=== PATIENT | female | born 1955 | race Caucasian/White ===

== ENCOUNTER 2017-10-27 15:42 | Inpatient (IN) | payer OTHER ==
[~2017-10-27] VITALS: Ht 160 cm; Wt 80.0 kg
[2017-10-27 15:45] VITALS: BP 181/79; PULSE 102; RESP 19; O2SAT 95
[2017-10-27 15:49] VITALS: BP 136/90; PULSE 117; RESP 18; TEMP 97.9; O2SAT 96
[2017-10-27 16:00] VITALS: BP 144/79; PULSE 98; RESP 22; O2SAT 95
[2017-10-27] MEDS ORDERED: ONDANSETRON HCL 4 MG/2 ML VIAL IV PUSH ONE ×2 (16:15→18:15)
[2017-10-27] MEDS ORDERED: SODIUM CHLORIDE 0.9% FLUSH 10 ML FLUSH IV FLUSH PRN ×2 (16:15→20:15)
[2017-10-27 16:36] LABS: AUTOMATED NEUTROPHIL # 8.6 TH/MM3 (1.8-7.7); BASOPHIL # 0.1 TH/MM3 (0-0.2); BASOPHIL % 0.6 % (0.0-2.0); EOSINOPHIL % 0.1 % (0.0-4.0); HEMATOCRIT 46.5 % (35.0-46.0); HEMOGLOBIN 15.3 GM/DL (11.6-15.3); LYMPH % 6.8 % (9.0-44.0); LYMPHOCYTE # 0.7 TH/MM3 (1.0-4.8); MEAN CELL VOLUME 99.2 FL (80.0-100.0); MEAN CORPUSCULAR HEMOGLOBIN 32.6 PG (27.0-34.0); MEAN CORPUSCULAR HGB CONC 32.9 % (32.0-36.0); MONO % 4.1 % (0.0-8.0); MONOCYTE # 0.4 TH/MM3 (0-0.9); NEUT % 88.4 % (16.0-70.0); PLATELET COUNT 164 TH/MM3 (150-450); RED BLOOD COUNT 4.69 MIL/MM3 (4.00-5.30); RED CELL DISTRIBUTION WIDTH 16.1 % (11.6-17.2); WHITE BLOOD COUNT 9.8 TH/MM3 (4.0-11.0)
--- NOTE | 2017-10-27 16:37 | PD ---
HPI Chief Complaint: Altered Mental Status Time Seen by Provider: 16:04 Travel History International Travel<30 days: Yes Contact w/Intl Traveler<30days: [place] Country Traveled to: [place] Traveled to known affect area: No History of Present Illness HPI Patient is a 62-year-old female presenting to emergency department for evaluation of nausea and vomiting. This started in the middle of the night last night, patient states she's had dry heaving all morning and is afraid to eat or drink anything. She reports decreased appetite over the last several days and poor oral intake. Additionally she states that she was seen by her primary doctor yesterday and had blood work ordered as well as a CT of the brain due to increased forgetfulness and memory issues. States that they didn' t Mini-Mental Status exam in the office and patient didn't do well on it. Patient states that she has decreased motivation, has been sleeping more. She denies any fatigue but states she is not motivated because cognitively she is not functioning as she normally would. She reports losing periods of time. She does have a history of alcoholism, she was dry for 12 years, she relapsed 3 years ago for approximately 12 months and then was cleaned again. 3 months ago she had a weeklong episode of binge drinking but has not had any alcohol since then per her 's report. Patient denies any chest pain, shortness of breath, headache, dysuria, fever, chills. PFSH Past Medical History Medical History: Denies Significant Hx Past Surgical History Abdominal Surgery: Yes (BOWEL LOOP AND REMOVED OVARY) Appendectomy: Yes Social History Alcohol Use: Yes Tobacco Use: No Substance Use: No Allergies-Medications (Allergen,Severity, Reaction): Coded Allergies: Sulfa (Sulfonamide Antibiotics) (Verified Adverse Reaction, Intermediate, VOMITING, 10/27/17) Review of Systems Except as stated in HPI: all other systems reviewed are Neg General / Constitutional: No: Fever, Chills Eyes: No: Blurred Vision HENT: No: Headaches, Lightheadedness Cardiovascular: No: Chest Pain or Discomfort Respiratory: No: Shortness of Breath Gastrointestinal: Positive: Nausea, Vomiting, No: Abdominal Pain Genitourinary: No: Dysuria Neurologic: Positive: Change in Mentation Psychiatric: No: Anxiety, Depression Physical Exam Narrative GENERAL: Well-developed, well-nourished, alert female. Initially appeared anxious, in no acute distress. SKIN: Warm and dry. HEAD: Atraumatic. Normocephalic. EYES: Pupils equal and round. No scleral icterus. No injection or drainage. ENT: No nasal bleeding or discharge. Mucous membranes pink and moist. NECK: Trachea midline. No JVD. CARDIOVASCULAR: Tachycardic. RESPIRATORY: No accessory muscle use. Clear to auscultation. Breath sounds equal bilaterally. GASTROINTESTINAL: Abdomen soft, non-tender, nondistended. Hepatic and splenic margins not palpable. MUSCULOSKELETAL: Extremities without clubbing, cyanosis, or edema. No obvious deformities. NEUROLOGICAL: Awake and alert. No obvious cranial nerve deficits. Motor grossly within normal limits. Five out of 5 muscle strength in the arms and legs. Normal speech. PSYCHIATRIC: Appropriate mood and affect; insight and judgment normal. Data Data Last Documented VS Vital Signs Date Time Temp Pulse Resp B/P (MAP) Pulse Ox O2 Delivery O2 Flow Rate FiO2 10/27/17 18:00 94 28 134/77 (96) 97 Room Air 10/27/17 15:49 97.9 Orders Orders Ammonia (10/27/17 16:04) Complete Blood Count With Diff (10/27/17 16:04) Comprehensive Metabolic Panel (10/27/17 16:04) Creatine Kinase (Cpk) (10/27/17 16:04) Prothrombin Time / Inr (Pt) (10/27/17 16:04) Act Partial Throm Time (Ptt) (10/27/17 16:04) Troponin I (10/27/17 16:04) Thyroid Stimulating Hormone (10/27/17 16:04) Urinalysis - C+S If Indicated (10/27/17 16:04) Ct Brain W/O Iv Contrast(Rout) (10/27/17 16:04) Blood Glucose (10/27/17 16:04) Ecg Monitoring (10/27/17 16:04) Iv Access Insert/Monitor (10/27/17 16:04) Oximetry (10/27/17 16:04) Sodium Chloride 0.9% Flush (Ns Flush) (10/27/17 16:15) Drug Screen, Random Urine (10/27/17 16:04) Ondansetron Inj (Zofran Inj) (10/27/17 16:15) Rapid Plasmin Reagin Screen (10/27/17 16:04) Beta Hydroxybutyrate (Acetone) (10/27/17 17:20) Sodium Chlor 0.9% 1000 Ml Inj (Ns 1000 M (10/27/17 18:00) Sodium Chlor 0.9% 1000 Ml Inj (Ns 1000 M (10/27/17 18:00) Lactic Acid (10/27/17 17:55) Urine Culture (10/27/17 16:50) Ondansetron Inj (Zofran Inj) (10/27/17 18:15) Lorazepam Inj (Ativan Inj) (10/27/17 18:30) Lorazepam Inj (Ativan Inj) (10/27/17 18:30) Ceftriaxone Inj (Rocephin Inj) (10/27/17 18:30) Admit Order (Ed Use Only) (10/27/17 18:37) Labs Laboratory Tests Test 10/27/17 16:13 10/27/17 16:19 10/27/17 16:50 10/27/17 17:15 White Blood Count 9.8 TH/MM3 Red Blood Count 4.69 MIL/MM3 Hemoglobin 15.3 GM/DL Hematocrit 46.5 % Mean Corpuscular Volume 99.2 FL Mean Corpuscular Hemoglobin 32.6 PG Mean Corpuscular Hemoglobin Concent 32.9 % Red Cell Distribution Width 16.1 % Platelet Count 164 TH/MM3 Mean Platelet Volume 7.0 FL Neutrophils (%) (Auto) 88.4 % Lymphocytes (%) (Auto) 6.8 % Monocytes (%) (Auto) 4.1 % Eosinophils (%) (Auto) 0.1 % Basophils (%) (Auto) 0.6 % Neutrophils # (Auto) 8.6 TH/MM3 Lymphocytes # (Auto) 0.7 TH/MM3 Monocytes # (Auto) 0.4 TH/MM3 Eosinophils # (Auto) 0.0 TH/MM3 Basophils # (Auto) 0.1 TH/MM3 CBC Comment DIFF FINAL Differential Comment Prothrombin Time 10.0 SEC Prothromb Time International Ratio 1.0 RATIO Activated Partial Thromboplast Time 24.0 SEC Blood Urea Nitrogen 19 MG/DL Creatinine 0.99 MG/DL Random Glucose 93 MG/DL Total Protein 8.9 GM/DL Albumin 4.6 GM/DL Calcium Level 9.6 MG/DL Alkaline Phosphatase 63 U/L Aspartate Amino Transf (AST/SGOT) 97 U/L Alanine Aminotransferase (ALT/SGPT) 63 U/L Total Bilirubin 1.2 MG/DL Sodium Level 134 MEQ/L Potassium Level 4.5 MEQ/L Chloride Level 94 MEQ/L Carbon Dioxide Level 11.8 MEQ/L Anion Gap 28 MEQ/L Estimat Glomerular Filtration Rate 57 ML/MIN Total Creatine Kinase 94 U/L Troponin I LESS THAN 0.02 NG/ML Thyroid Stimulating Hormone 3rd Gen 1.220 uIU/ML B-Hydroxybutyrate 9.60 MMOL/L Ammonia 23 MCMOL/L Urine Color YELLOW Urine Turbidity HAZY Urine pH 5.5 Urine Specific [place] 1.021 Urine Protein 30 mg/dL Urine Glucose (UA) NEG mg/dL Urine Ketones 150 mg/dL Urine Occult Blood TRACE Urine Nitrite NEG Urine Bilirubin NEG Urine Urobilinogen LESS THAN 2.0 MG/DL Urine Leukocyte Esterase MOD Urine RBC 3 /hpf Urine WBC 8 /hpf Urine Squamous Epithelial Cells 5 /hpf Urine Bacteria FEW /hpf Urine Hyaline Casts 46 /lpf Urine Mucus FEW /lpf Microscopic Urinalysis Comment CATH-CULTURE IND Urine Opiates Screen NEG Urine Barbiturates Screen NEG Urine Amphetamines Screen NEG Urine Benzodiazepines Screen NEG Urine Cocaine Screen NEG Urine Cannabinoids Screen NEG MDM Medical Decision Making Medical Screen Exam Complete: Yes Emergency Medical Condition: Yes Interpretation(s) Vital Signs Date Time Temp Pulse Resp B/P (MAP) Pulse Ox O2 Delivery O2 Flow Rate FiO2 10/27/17 15:49 97.9 117 18 136/90 (105) 96 Differential Diagnosis Metabolic abnormality versus dementia versus viral syndrome versus encephalopathy versus mass versus other Narrative Course Patient is a 62-year-old female that presented to the emergency department for evaluation of altered mental status. On arrival patient was tachycardic, tachypneic and tremulous. Labs and imaging ordered and pending. is at bedside and corroborates patient's claim that she has not had any alcohol in 2 and half months. CBC is unremarkable Ammonia is 23, TSH is 1.22 Chemistry with an anion gap of 28, BUN 19, carbon dioxide 11.8, AST and ALT 97/ 63, bilirubin 1.2. Pt was given 2l IVF. Urine drug screen is negative Beta hydroxybutyrate is 9.6 Urinalysis is consistent with a urinary tract infection, Rocephin 1 g IV 1 dose ordered. Reflex urine culture pending CT scan of the brain shows slight atrophic and small vessel ischemic changes without any evidence of acute hemorrhage or mass effect. Patient is acidotic, she continues to deny any alcohol intake. She was given Ativan 2 mg IV and she became tachycardic and tremulous again when she was reassessed at 1830. Discussed findings with residents who accepted admission on behalf of Dr. Lindsey. Admit orders placed. Discussed findings with patient. Past findings with as well, he states that he did find an empty bottle of tequila last week. He continues to believe that patient is not drinking regularly. Sepsis Criteria SIRS Criteria (2 or more): Heart rate over 90, RR > 20 or PaCO2 < 32 Diagnosis Primary Impression: Ketoacidosis Additional Impressions: SIRS (systemic inflammatory response syndrome) UTI (urinary tract infection) Qualified Codes: N39.0 - Urinary tract infection, site not specified Memory changes Admitting Information Admitting Physician Requests: Admit Condition: Stable Lizzie Spain Oct 27, 2017 16:37
--- NOTE | 2017-10-27 16:52 | RADRPT ---
EXAM DATE/TIME: 10/27/2017 16:13 [facility] COMPARISON: No previous studies available for comparison. INDICATIONS : Altered mental status. New onset tremors. RADIATION DOSE: 56.35 CTDIvol (mGy) MEDICAL HISTORY : None SURGICAL HISTORY : None. ENCOUNTER: Initial ACUITY: 2 months PAIN SCALE: 0/10 LOCATION: cranial TECHNIQUE: Multiple contiguous axial images were obtained of the head. Using automated exposure control and adj ustment of the mA and/or kV according to patient size, radiation dose was kept as low as reasonably a chievable to obtain optimal diagnostic quality images. DICOM format image data is available electro nically for review and comparison. FINDINGS: There is no evidence for intracranial hemorrhage, mass effect, mass lesions, or edema. The visualize d bony structures appear intact. Slight degree of brain atrophy is seen. Slight periventricular whit e matter changes are seen nonspecific mostly consistent with chronic small vessel ischemic changes. There are no signs of acute infarction for technique. CONCLUSION: Slight atrophic and small vessel ischemic changes without any evidence for acute hemorrhage or mass effect. Nicole Kinney MD on October 27, 2017 at 16:49 Board Certified Radiologist. This report was verified electronically.
[2017-10-27 17:04] LABS: ALBUMIN 4.6 GM/DL (3.4-5.0); AST (GOT) 97 U/L (15-37); BICARBONATE 11.8 MEQ/L (21.0-32.0); BLOOD UREA NITROGEN 19 MG/DL (7-18); CALCIUM 9.6 MG/DL (8.5-10.1); CHLORIDE 94 MEQ/L (98-107); CREATININE 0.99 MG/DL (0.50-1.00); GLOMERULAR FILTRATION RATE 57 ML/MIN (>89); GLUCOSE,RANDOM 93 MG/DL (74-106); SODIUM (NA) 134 MEQ/L (136-145)
[2017-10-27 17:15] LABS: ALKALINE PHOSPHATASE 63 U/L (45-117); ALT (GPT) 63 U/L (10-53); TOTAL BILIRUBIN ADULT 1.2 MG/DL (0.2-1.0); TOTAL PROTEIN 8.9 GM/DL (6.4-8.2); TROPONIN I LESS THAN 0.02 NG/ML (0.02-0.05)
[2017-10-27 18:00] VITALS: BP 134/77; PULSE 94; RESP 28; O2SAT 97
[2017-10-27] MEDS ORDERED: SODIUM CHLOR 0.9% 1000 ML INJ 1,000 ML IV ONE ×2 (18:00)
[2017-10-27 18:05] LABS: BACTERIA, URINE FEW /hpf; BILIRUBIN, URINE NEG (NEG); BLOOD, URINE TRACE (NEG); GLUCOSE,URINE NEG (NEG); HYALINE CAST, URINE 46 /lpf (RARE); KETONE, URINE 150 mg/dL (NEG); MUCUS URINE FEW /lpf (OCC); NITRITE,URINE NEG (NEG); PH, URINE 5.5 (5.0-8.5); SQUAMOUS EPITHELIAL CELL URINE 5 /hpf (0-5); URINE COLOR YELLOW (YELLW/STRAW); URINE LEUKOCYTE ESTERASE MOD (NEG)
[2017-10-27] MEDS ORDERED: cefTRIAXone INJ 1,000 MG in SODIUM CHLORIDE 0.9% INJ 100 ML IV ONE (18:30)
[2017-10-27] MEDS ORDERED: LORazepam 2 MG/ML VIAL IV PUSH ONE ×2 (18:30)
[2017-10-27 19:00] VITALS: BP 141/72; PULSE 98; RESP 20; O2SAT 96
[2017-10-27 19:36] LABS: MAGNESIUM 2.1 MG/DL (1.5-2.5); PHOSPHORUS 2.8 MG/DL (2.5-4.9)
--- NOTE | 2017-10-27 19:46 | HHI.HP ---
[facility] Service Family Medicine Primary Care Physician Unknown Admission Diagnosis KETOACIDOSIS Diagnoses: International Travel<30 Days: Yes Contact w/Intl Traveler<30days: [place] Country Traveled to: [facility] Known Affected Area: No History of Present Illness Patient is a 62-year-old female with a past history of alcoholism coming in today for nausea and vomiting. She states of her concerns began approximate 4 months ago when she states she felt her "mind going." This was described as being forgetful, having a flat affect, being less involved with friends. She states around Thanksgiving she got a cold and around that same time she started "shutting down" where she had more flat affect, began sleeping a lot, couldn't figure out how to get out of chairs and had a decreasing appetite. She states it is hard to know how to place her feet do feel appropriately balanced when getting out of chairs. She also started to know a shuffling gait. She believes that she recently has started caring less about hygiene, brushes her teeth less , showers less. 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 Approximately 5 days ago she stopped eating altogether. She recently got a new doctor because her old doctor retired and saw her new doctor a day or 2 ago who prescribed her "B1 and folate." Today she believes she is eating sicker, she only been drinking water for 5 days, finally today when she drank water she began throwing up. She believes she vomited approximately 7 times, vomited water then bile. No blood noted. She is also concerned she felt her heart rate was elevated and her blood pressure is elevated. She reports her heart rate is normally in the 60s and her blood pressures typically in the 90s to 100s. She also reports she had tremors today. She has recent travel to the [facility] and [place], she did not note anything specific about the trips. Currently she believes she is slightly unbalanced, has slower speech. No facial droop, weakness, numbness, tingling. When asked about hallucinations she states that there may been one situation the other night where she waves her hands through the air and proclaimed "they're all gone." She states that although she doesn't quite remember this, her reported this to her. Currently she believes she has decreased interest in things she used to enjoy, no new guilt about anything, decreased energy, decreased concentration, decreased appetite, psychomotor retardation, no suicidal or homicidal ideation. Denies fever, chills, dysuria, shortness of breath, productive cough, chest pain. (Alfredo Boswell MD R1) Review of Systems Constitutional: COMPLAINS OF: Fatigue, Weight gain (55 pounds over last year), Weight loss (lost 21 pounds, intentional), Chills, Change in appetite (Decreased ), DENIES: Diaphoretic episodes, Fever, Dizziness Endocrine: COMPLAINS OF: Polydipsia, Polyuria, DENIES: Polyphagia Eyes: DENIES: Blurred vision, Diplopia, Eye inflammation, Eye pain, Vision loss , Photosensitivity, Double Vision Ears, nose, mouth, throat: DENIES: Tinnitus, Hearing loss, Vertigo, Nasal discharge, Throat pain, Hoarseness, Ear Pain, Running Nose, Epistaxis, Sinus Pain Respiratory: COMPLAINS OF: Cough, DENIES: Snoring, Wheezing, Hemoptysis, Sputum production, Shortness of breath Cardiovascular: DENIES: Chest pain, Palpitations, Syncope, Lower Extremity Edema Gastrointestinal: COMPLAINS OF: Abdominal pain (thinks pulled muscle), Constipation (maybe 6 days ago last BM), Nausea, Vomiting, DENIES: Black stools , Bloody stools, Diarrhea Genitourinary: COMPLAINS OF: Urinary frequency, DENIES: Abnormal vaginal bleeding, Hematuria, Dysuria, Vaginal discharge Musculoskeletal: COMPLAINS OF: Joint pain (Chronic hip), Neck pain (Cervical stenosis), DENIES: Muscle aches, Stiffness Integumentary: COMPLAINS OF: Rash (dry white spots on arms), DENIES: Abnormal pigmentation Hematologic/lymphatic: DENIES: Bruising, Lymphadenopathy Immunologic/allergic: DENIES: Eczema, Urticaria Neurologic: COMPLAINS OF: Abnormal gait (Shuffling), Speech Problems (Speaking slowly), Tremor, Poor Balance, DENIES: Headache, Localized weakness, Paresthesias, Seizures Psychiatric: DENIES: Anxiety, Depression, Hallucinations, Suicidal Ideation, Homicidal Ideation, Delusions (Alfredo Boswell MD R1) Past Family Social History Past Medical History none Past Surgical History Oophrectomy 2010 Appendectomy 2010 (Alfredo Boswell MD R1) Allergies: Coded Allergies: Sulfa (Sulfonamide Antibiotics) (Verified Adverse Reaction, Intermediate, VOMITING, 10/27/17) Family History Sister: Thyroid issues Twin brother: "bad back and knees" no other chronic problems Mother: Breast cancer, at 63 Father: at 89, prostate Cancer Social History EtOH: Former alcoholic drank half pint - pint /day until age 40, sober until last year, drank for a year half to 1 pint/per vodka or wine or tequila. Stopped drinking 2 and half months ago. Tobacco: 1 pack per day for 24 years Drugs: none (Alfredo Boswell MD R1) Physical Exam Vital Signs Vital Signs Date Time Temp Pulse Resp B/P (MAP) Pulse Ox O2 Delivery O2 Flow Rate FiO2 10/27/17 19:00 98 20 141/72 (95) 96 Room Air 10/27/17 18:00 94 28 134/77 (96) 97 Room Air 10/27/17 16:00 98 22 144/79 (100) 95 Room Air 10/27/17 15:49 97.9 117 18 136/90 (105) 96 10/27/17 15:45 102 19 181/79 (113) 95 Room Air Physical Exam GENERAL: This is a well-nourished, well-developed patient, in no apparent distress. SKIN: No ecchymoses. Several small hypopigmented dry lesions on arms. Non- scaling. Cool and dry. HEAD: Atraumatic. Normocephalic. No temporal or scalp tenderness. EYES: PERRLA. Extraocular motions intact. No scleral icterus. No injection or drainage. ENT: Nose without bleeding, purulent drainage or septal hematoma. Throat without erythema, tonsillar hypertrophy or exudate. Uvula midline. Airway patent. NECK: Trachea midline. No JVD or lymphadenopathy. Supple, nontender, no meningeal signs. CARDIOVASCULAR: Regular rate and rhythm without murmurs, gallops, or rubs. RESPIRATORY: Clear to auscultation. Breath sounds equal bilaterally. No wheezes , rales, or rhonchi. GASTROINTESTINAL: Abdomen soft, non-tender, nondistended. No hepato-splenomegaly , or palpable masses. No guarding. MUSCULOSKELETAL: Extremities without clubbing, cyanosis, or edema. No joint tenderness, effusion, or edema noted. No calf tenderness. NEUROLOGICAL: Awake and alert. Cranial nerves II through XII intact. Motor and sensory grossly within normal limits. Five out of 5 muscle strength in all muscle groups. Slow speech. Poor balance when attempting to stand, continuing standing. Near immediate loss of balance when standing with eyes closed. Unable to assess gait due to safety. Slow rapid alternating movements. Finger to nose with intention tremor, no dysmetria observed. Laboratory Laboratory Tests Test 10/27/17 16:13 10/27/17 16:19 10/27/17 16:50 10/27/17 17:15 White Blood Count 9.8 Red Blood Count 4.69 Hemoglobin 15.3 Hematocrit 46.5 Mean Corpuscular Volume 99.2 Mean Corpuscular Hemoglobin 32.6 Mean Corpuscular Hemoglobin Concent 32.9 Red Cell Distribution Width 16.1 Platelet Count 164 Mean Platelet Volume 7.0 Neutrophils (%) (Auto) 88.4 Lymphocytes (%) (Auto) 6.8 Monocytes (%) (Auto) 4.1 Eosinophils (%) (Auto) 0.1 Basophils (%) (Auto) 0.6 Neutrophils # (Auto) 8.6 Lymphocytes # (Auto) 0.7 Monocytes # (Auto) 0.4 Eosinophils # (Auto) 0.0 Basophils # (Auto) 0.1 CBC Comment DIFF FINAL Differential Comment Prothrombin Time 10.0 Prothromb Time International Ratio 1.0 Activated Partial Thromboplast Time 24.0 Blood Urea Nitrogen 19 Creatinine 0.99 Random Glucose 93 Total Protein 8.9 Albumin 4.6 Calcium Level 9.6 Alkaline Phosphatase 63 Aspartate Amino Transf (AST/SGOT) 97 Alanine Aminotransferase (ALT/SGPT) 63 Total Bilirubin 1.2 Sodium Level 134 Potassium Level 4.5 Chloride Level 94 Carbon Dioxide Level 11.8 Anion Gap 28 Estimat Glomerular Filtration Rate 57 Total Creatine Kinase 94 Troponin I LESS THAN 0.02 Thyroid Stimulating Hormone 3rd Gen 1.220 B-Hydroxybutyrate 9.60 Ammonia 23 Urine Color YELLOW Urine Turbidity HAZY Urine pH 5.5 Urine Specific [place] 1.021 Urine Protein 30 Urine Glucose (UA) NEG Urine Ketones 150 Urine Occult Blood TRACE Urine Nitrite NEG Urine Bilirubin NEG Urine Urobilinogen LESS THAN 2.0 Urine Leukocyte Esterase MOD Urine RBC 3 Urine WBC 8 Urine Squamous Epithelial Cells 5 Urine Bacteria FEW Urine Hyaline Casts 46 Urine Mucus FEW Microscopic Urinalysis Comment CATH-CULTURE IND Urine Opiates Screen NEG Urine Barbiturates Screen NEG Urine Amphetamines Screen NEG Urine Benzodiazepines Screen NEG Urine Cocaine Screen NEG Urine Cannabinoids Screen NEG Test 10/27/17 18:40 Date/Time Source Procedure Growth Status 10/27/17 16:50 Urine Catheterized Urine Urine Culture Pending Received (Alfredo Boswell MD R1) Result Diagram: 10/27/17 1613 10/27/17 1613 Imaging Last [address] 10/27/17 1604 Signed Impressions: Service Date/Time: Friday, October 27, 2017 16:13 - CONCLUSION: Slight atrophic and small vessel ischemic changes without any evidence for acute hemorrhage or mass effect. Nicole Kinney MD (Alfredo Boswell MD R1) Caprini VTE Risk Assessment Caprini VTE Risk Assessment: Mod/High Risk (score >= 2) Caprini Risk Assessment Model Point Value = 1 Point Value = 2 Point Value = 3 Point Value = 5 Age 41-60 Minor surgery BMI > 25 kg/m2 Swollen legs Varicose veins or History of unexplained or recurrent spontaneous Oral contraceptives or hormone replacement Sepsis (< 1 month) Serious lung disease, including pneumonia (< 1 month) Abnormal pulmonary function Acute myocardial infarction Congestive heart failure (< 1 month) History of inflammatory bowel disease Medical patient at bed rest Age 61-74 Arthroscopic surgery Major open surgery (> 45 min) Laparoscopic surgery (> 45 min) Malignancy Confined to bed (> 72 hours) Immobilizing plaster cast Central venous access Age >= 75 History of VTE Family history of VTE Factor V Leiden Prothrombin [id number] Lupus anticoagulant Anticardiolipin antibodies Elevated serum homocysteine Heparin-induced thrombocytopenia Other congenital or acquired thrombophilia Stroke (< 1 month) Elective arthroplasty Hip, pelvis, or leg fracture Acute spinal cord injury (< 1 month) Prophylaxis Regimen Total Risk Factor Score Risk Level Prophylaxis Regimen 0-1 Low Early ambulation 2 Moderate Order ONE of the following: *Sequential Compression Device (SCD) *Heparin 5000 units SQ BID 3-4 Higher Order ONE of the following medications: *Heparin 5000 units SQ TID *Enoxaparin/Lovenox 40 mg SQ daily (WT < 150 kg, CrCl > 30 mL/min) *Enoxaparin/Lovenox 30 mg SQ daily (WT < 150 kg, CrCl > 10-29 mL/min) *Enoxaparin/Lovenox 30 mg SQ BID (WT < 150 kg, CrCl > 30 mL/min) AND/OR *Sequential Compression Device (SCD) 5 or more Highest Order ONE of the following medications: *Heparin 5000 units SQ TID (Preferred with Epidurals) *Enoxaparin/Lovenox 40 mg SQ daily (WT < 150 kg, CrCl > 30 mL/min) *Enoxaparin/Lovenox 30 mg SQ daily (WT < 150 kg, CrCl > 10-29 mL/min) *Enoxaparin/Lovenox 30 mg SQ BID (WT < 150 kg, CrCl > 30 mL/min) AND *Sequential Compression Device (SCD) (Alfredo Boswell MD R1) Assessment and Plan Assessment and Plan 62-year-old female who presented with nausea and vomiting. Increased confusion over the past 4 months, parkinsonian-like features. Metabolic derangements on admission. Anion gap 28. UA positive for UTI. (Alfredo Boswell MD R1) Problem List: (1) Ketoacidosis ICD Codes: E87.2 - Acidosis Status: Acute Plan: Ketoacidosis. Urine ketones 150. Beta hydroxybutyrate 9.6. Random glucose 93. No history of diabetes. Reports anorexia for 5 days with nausea and vomiting on day of admission. Possible ketoacidosis secondary to starvation. -Control nausea and vomiting with antiemetic, Zofran -Swallow evaluation prior to diet due to recent changes in mental status, see memory changes below -Maintenance fluids -Follow up magnesium and phosphorus (2) UTI (urinary tract infection) ICD Codes: N39.0 - Urinary tract infection, site not specified Status: Acute Plan: Currently does not complain of dysuria. Reports a darkening of her urine today. On the UA on admission moderate LE, 8 WBC, few urine bacteria. Currently afebrile, mild tachycardia 95, RR 16 -Rocephin 1000 mg every 24 hours -Monitor for signs of systemic infection (3) Memory changes ICD Codes: R41.3 - Other amnesia Status: Acute Plan: Reports 4 months of worsening forgetfulness, flat affect, decreased interest and others, shuffling gait. Increasingly decreased appetite, anorexic for the past 5 days. Reports new onset tremors today. Possibly dementia (Lewy body versus vascular). Past history of alcoholism, ethyl alcohol less than 3 today. -CT head without acute hemorrhage or mass effect -Follow up brain MRI -Follow-up neurology consult -Nothing by mouth until cleared by swallow evaluation -Speak with about patient's functional status (4) FEN Plan: Fluids: -Maintenance fluids 120 mL/h Electrolytes: -Monitor and replete as needed Nutrition: -Nothing by mouth until swallow study (Alfredo Boswell MD R1) Problem List: (1) Ketoacidosis ICD Codes: E87.2 - Acidosis Status: Acute Plan: Ketoacidosis. Urine ketones 150. Beta hydroxybutyrate 9.6. Random glucose 93. No history of diabetes. Reports anorexia for 5 days with nausea and vomiting on day of admission. Possible ketoacidosis secondary to starvation. -Control nausea and vomiting with antiemetic, Zofran -Swallow evaluation prior to diet due to recent changes in mental status, see memory changes below -Maintenance fluids -Follow up magnesium and phosphorus (2) UTI (urinary tract infection) ICD Codes: N39.0 - Urinary tract infection, site not specified Status: Acute Plan: Currently does not complain of dysuria. Reports a darkening of her urine today. On the UA on admission moderate LE, 8 WBC, few urine bacteria. Currently afebrile, mild tachycardia 95, RR 16 -Rocephin 1000 mg every 24 hours -Monitor for signs of systemic infection (3) Memory changes ICD Codes: R41.3 - Other amnesia Status: Acute Plan: Reports 4 months of worsening forgetfulness, flat affect, decreased interest and others, shuffling gait. Increasingly decreased appetite, anorexic for the past 5 days. Reports new onset tremors today. Possibly dementia (Lewy body versus vascular). Past history of alcoholism, ethyl alcohol less than 3 today. -CT head without acute hemorrhage or mass effect -Follow up brain MRI -Follow-up neurology consult -Nothing by mouth until cleared by swallow evaluation -Speak with about patient's functional status (4) FEN Plan: Fluids: -Maintenance fluids 120 mL/h Electrolytes: -Monitor and replete as needed Nutrition: -Nothing by mouth until swallow study See the residents documentation for details. I saw and evaluated the patient regarding the hdz portions of this evaluation and agree with the residents findings and plans as written. I have reviewed the patients past medical/surgical and social histories and updated as appropriate. Parts of this note were created using [employer] voice recognition software program. While efforts were made to correct any mistakes made by this software, some mistakes, errors, and omissions may remain in the final note that were not caught when the note was originally created. Plan of care was discussed and agreed upon with the patient as specifically documented in the above note. An opportunity to ask questions with explanation was provided. Patient voiced understanding on all information reviewed and discussed. (Gabino Brennan MD) Physician Certification 2 Midnight Certification Type: Admission for Inpatient Services Order for Inpatient Services The services are ordered in accordance with Medicare regulations or non- Medicare payer requirements, as applicable. In the case of services not specified as inpatient-only, they are appropriately provided as inpatient services in accordance with the 2-midnight benchmark. Estimated LOS (days): 2 2 days is the estimated time the patient will need to remain in the hospital, assuming treatment plan goals are met and no additional complications. Post-Hospital Plan: Home (Alfredo Boswell MD R1) Problem Qualifiers (1) UTI (urinary tract infection): Qualified Codes: N39.0 - Urinary tract infection, site not specified Alfredo Boswell MD R1 Oct 27, 2017 19:46 Gabino Brennan MD Oct 28, 2017 13:09
[2017-10-27] MEDS ORDERED: FLUMAZENIL 0.5 MG/5 ML VIAL IV PUSH PRN (20:15)
[2017-10-27] MEDS ORDERED: MAGNESIUM HYDROXIDE SUSP 30 ML CUP PO PRN (20:15)
[2017-10-27] MEDS ORDERED: LACTULOSE SYRUP 20 GM/30 ML CUP PO PRN (20:15)
[2017-10-27] MEDS ORDERED: LORazepam 2 MG/ML VIAL IV PUSH PRN ×4 (20:15)
[2017-10-27] MEDS ORDERED: NALOXONE HCL 0.4 MG/ML AMP IV PUSH PRN (20:15)
[2017-10-27] MEDS ORDERED: SENNOSIDES 8.6 MG TAB PO PRN (20:15)
[2017-10-27] MEDS ORDERED: ACETAMINOPHEN 325 MG TAB PO PRN (20:15)
[2017-10-27] MEDS ORDERED: BISACODYL 10 MG SUPP RECTAL PRN (20:15)
[2017-10-27 21:11] VITALS: BP 131/78; PULSE 95; RESP 16; TEMP 98.1; O2SAT 95
[2017-10-27] MEDS: ONDANSETRON HCL 4 MG/2 ML VIAL IVP PRN (21:46)
[2017-10-27] MEDS: HEPARIN SODIUM - SQ 10,000 UNITS/ML VIAL SQ SCH (21:46)
[2017-10-27] MEDS: DOCUSATE SODIUM 50 MG/SENNA 8.6 MG TAB PO SCH (21:49)
[2017-10-27] MEDS: SODIUM CHLORIDE 0.9% FLUSH 10 ML FLUSH IV FLUSH SCH (21:50)
[2017-10-27] MEDS: LORazepam 2 MG TAB PO PRN (21:52)
[2017-10-28] VITALS (7 sets, daily range): BP systolic 116–139; BP diastolic 66–83; PULSE 83–100; RESP 17–20; TEMP 96.6–98.9; O2SAT 92–97
[2017-10-28] MEDS: SODIUM CHLOR 0.9% 1000 ML INJ 1,000 ML IV SCH ×3 (00:59→22:05)
[2017-10-28] MEDS: LORazepam 2 MG TAB PO PRN (01:42)
[2017-10-28] MEDS: HEPARIN SODIUM - SQ 10,000 UNITS/ML VIAL SQ SCH ×3 (06:00→22:09)
[2017-10-28 08:20] LABS: AUTOMATED NEUTROPHIL # 6.6 TH/MM3 (1.8-7.7); BASOPHIL % 0.3 % (0.0-2.0); EOSINOPHIL % 0.3 % (0.0-4.0); HEMATOCRIT 35.5 % (35.0-46.0); HEMOGLOBIN 12.1 GM/DL (11.6-15.3); LYMPH % 9.6 % (9.0-44.0); LYMPHOCYTE # 0.8 TH/MM3 (1.0-4.8); MEAN CORPUSCULAR HEMOGLOBIN 33.5 PG (27.0-34.0); MEAN CORPUSCULAR HGB CONC 34.2 % (32.0-36.0); MEAN PLATELET VOLUME 7.4 FL (7.0-11.0); MONO % 6.6 % (0.0-8.0); MONOCYTE # 0.5 TH/MM3 (0-0.9); NEUT % 83.2 % (16.0-70.0); PLATELET COUNT 110 TH/MM3 (150-450); RED BLOOD COUNT 3.62 MIL/MM3 (4.00-5.30); RED CELL DISTRIBUTION WIDTH 16.1 % (11.6-17.2); WHITE BLOOD COUNT 7.9 TH/MM3 (4.0-11.0)
[2017-10-28] MEDS: DOCUSATE SODIUM 50 MG/SENNA 8.6 MG TAB PO SCH ×2 (08:37→21:00)
[2017-10-28] MEDS: SODIUM CHLORIDE 0.9% FLUSH 10 ML FLUSH IV FLUSH SCH ×2 (08:38→21:00)
[2017-10-28] MEDS: ONDANSETRON HCL 4 MG/2 ML VIAL IVP PRN ×2 (08:39→17:30)
[2017-10-28 08:48] LABS: ALBUMIN 3.3 GM/DL (3.4-5.0); ALKALINE PHOSPHATASE 46 U/L (45-117); ALT (GPT) 43 U/L (10-53); AST (GOT) 60 U/L (15-37); BICARBONATE 19.7 MEQ/L (21.0-32.0); BLOOD UREA NITROGEN 19 MG/DL (7-18); CALCIUM 7.7 MG/DL (8.5-10.1); CHLORIDE 104 MEQ/L (98-107); CREATININE 0.79 MG/DL (0.50-1.00); GLOMERULAR FILTRATION RATE 74 ML/MIN (>89); GLUCOSE,RANDOM 77 MG/DL (74-106); SODIUM (NA) 139 MEQ/L (136-145); TOTAL BILIRUBIN ADULT 1.1 MG/DL (0.2-1.0); TOTAL PROTEIN 6.4 GM/DL (6.4-8.2)
[2017-10-28] MEDS: LORazepam 1 MG TAB PO PRN ×4 (08:50→22:17)
[2017-10-28] MEDS ORDERED: THIAMINE HCL 100 MG TAB PO SCH (09:00)
[2017-10-28] MEDS: MULTIVITAMIN TAB PO SCH (09:34)
[2017-10-28] MEDS: FOLIC ACID 1 MG TAB PO SCH (09:34)
--- NOTE | 2017-10-28 11:02 | RADRPT ---
EXAM DATE/TIME: 10/28/2017 09:52 [facility] COMPARISON: CT BRAIN W/O CONTRAST, October 27, 2017, 16:13. INDICATIONS : Unsteady gait. MEDICAL HISTORY : None. SURGICAL HISTORY : None. ENCOUNTER: Initial ACUITY: 1 day PAIN SCORE: 0/10 LOCATION: cranial TECHNIQUE: Multiplanar, multisequence MRI of the brain was performed without contrast. FINDINGS: CEREBRUM: The ventricles are normal for age. The cortical sulci are mildly widened. No evidence of midline amrilyn ft, mass lesion, hemorrhage or acute infarction. No extraaxial fluid collections are seen. The pitu itary gland and suprasellar cistern are normal in configuration. WHITE MATTER: There is focal mild increased signal within the anterior medial left kiesha on the flair images. POSTERIOR FOSSA: The cerebellum and brainstem are intact. The 4th ventricle is midline. The cerebellopontine angle is unremarkable. The cerebellar tonsils are normal in position. DIFFUSION IMAGING: No focal areas of restricted diffusion are seen. No evidence of acute infarction. EXTRACRANIAL: The visualized portions of the orbits and paranasal sinuses are unremarkable. CONCLUSION: 1. Mild focal increased signal within the pontine white matter on the flair images. This could be a s mall area of demyelination. Osmotic demyelination syndrome causes signal abnormality in this region but typically is much more diffuse. 2. Mild atrophy with widening of the cortical sulci. Jese Alvarez MD on October 28, 2017 at 10:52 Board Certified Radiologist. This report was verified electronically.
[2017-10-28] MEDS ORDERED: LOPERAMIDE HCL 2 MG CAP PO PRN (11:30)
--- NOTE | 2017-10-28 11:54 | RADRPT ---
EXAM DATE/TIME: 10/28/2017 11:41 [facility] COMPARISON: No previous studies available for comparison. INDICATIONS : Shortness of breath and vomitting. MEDICAL HISTORY : None. SURGICAL HISTORY : None. ENCOUNTER: Initial ACUITY: 2 days PAIN SCORE: 0/10 LOCATION: Bilateral chest FINDINGS: The heart size is normal. There is linear density seen at the right base likely related to atelectasi s. Left lung is clear. No effusion is seen. CONCLUSION: Suspected linear atelectasis at the right base. Jese Alvarez MD on October 28, 2017 at 11:50 Board Certified Radiologist. This report was verified electronically.
[2017-10-28] MEDS: THIAMINE INJ 250 MG in SODIUM CHLORIDE 0.9% INJ 100 ML IV SCH ×2 (12:34→17:05)
--- NOTE | 2017-10-28 12:46 | MB ---
cc: HU ORDONEZ M.D. DATE OF CONSULTATION: 10/28/2017 REASON FOR CONSULTATION: Possible onset dementia tremors. HISTORY OF PRESENT ILLNESS: This 62-year-old woman with a history of alcoholism came with some nausea and vomiting and was having issues with confusion. She states she has a flat affect, did not want to shower or brush her teeth, sleeping more, did not want to leave her house. She has been having some decreased appetite. Decided to . 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 She states yesterday when she was dry heaving she had tremors but was not losing awareness. They recently travelled to the [facility] for the holidays and then to [place] and she states that she was taking it easy. She is worried about dementia. She stated that she does not think she has hallucinations but she heard last night people talking about some curing room supervisor with some dogs around, not sure if that really occurred. ALLERGIES: SULFA. FAMILY HISTORY: Family history of thyroid disease, back issues, breast cancer in the mother, prostate cancer in the father. SOCIAL HISTORY: She used to drink a half a pint to a pint daily until the age of 40 and then became sober last year and has not had a drink for a year and a half, a pint of vodka, stopped drinking 2-1/2 months ago. She smoked a pack a day for twenty-four years. No alcohol history. She is . PHYSICAL EXAMINATION: VITAL SIGNS: Temperature is 97.8, pulse 88, respiratory rate 20, blood pressure 121/83, satting at 92%. NECK: The neck is supple. No bruits. HEART: Regular. NEUROLOGICAL EXAMINATION: She is awake, alert. She is oriented. Her speech is normal. Pupils reactive. Visual black full. Face symmetrical. Tongue midline. I do not see her very flat as far as affect goes. Sometimes tearful. Motor-saeed there is normal tone. No cogwheeling. No tremor. No drift. No leg lag. Toes are downgoing. [id number] no past pointing just slow. LABS: Platelet count 110,000. Coag panel: PTT 24. Chemistries: Her sodium on admission was 134 and now it is 139. Her carbon dioxide is 19.4. BUN 19, creatinine 0.79, GFR is 74 with glucose of 77, calcium 7.7. Her lactic acid is 3.1 on admission. ALT 63, now 43. AST 97, now 60. Ammonia level 23. Albumin 3.3 today, yesterday 4.6. TSH 1.220. Toxicology data: Hydroxybutyrate was 9.60. Urine - 150 ketones, 8 white cells. Serology is pending for RPR. IMAGING STUDIES: Brain - I did review it. There are some chronic signal changes in the kiesha, white matter, mild atrophy, no acute infarct. Chest x-ray - possible atelectasis right base. IMPRESSION: Possible change in mental status due to chronic alcohol abuse, may have some mild cognitive impairment, may have some depression, some ketoacidosis was seen as well and a urinary tract infection. RECOMMENDATIONS: 1. Recommend controlling her nausea and vomiting. 2. Put her on fluids. 3. Treat her urinary tract infection. 4. I will go ahead and get some vitamin levels as well as an RPR. 5. Carotid ultrasound has been ordered by the primary team. 6. An EEG will be ordered as well. 7. Depending on her vitamin levels, she may need to start B12. I did order B12, B1 and B6. 8. Psychiatry evaluation as well as GI evaluation is pending as well. 9. Continue current care. 10. If her workup is unremarkable, she can be discharged home and followed up as an outpatient. MD DESIREE Carpenter/JACEK /12:12 PM /12:19 PM
[2017-10-28 14:44] LABS: FOLATE GREATER THAN 20.0 NG/ML (3.1-17.5)
--- NOTE | 2017-10-28 14:50 | PD.CONS ---
HPI History of Present Illness This is a 62 year old female who was admitted to the hospital on 10/27/17 with nausea and vomiting. Patient states that she has struggled with dysphasia and uncontrolled nausea and vomiting for at least one year off and on. She states the symptoms would go for a couple of weeks but then returned.. Patient had EGD approximately one year ago at [place] and had her esophagus stretched. She has not felt like her symptoms have been uncontrolled since this procedure. Patient also notes some mild left upper quadrant pain, but thinks she may have rib cage pain. Patient has had a history of alcohol, sober for 16 years but then started drinking upon a day for approximately 1 year. She states no alcohol for the past 2 months. Patient has chronic diarrhea, notes currently having approximately 8 dark stools a day. Patient's speech is currently slow mildly slurred and is a poor historian at this time. Her symptoms are rambling , and it is a struggle for her to stay on task. 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 Patient has noted weight gain over the past couple years 153 pounds up to 177 pounds. She states she has been greater than 200lbs during this period of time. Patient denies any constipation. Last colonoscopy was done in [address] Samayoa. (Jackie Zhao) [facility] Past Medical History Dysphagia. With dilatation, ring, one year ago Diarrhea EtOH abuse Tobacco user Past Surgical History Oophorectomy Appendectomy (Jackie Zhao) Coded Allergies: Sulfa (Sulfonamide Antibiotics) (Verified Adverse Reaction, Intermediate, VOMITING, 10/27/17) Medications Administered Medications Medications (Trade) Dose Ordered Sig/Agustina Route PRN Reason Start Time Stop Time Status Last Admin Dose Admin Sodium Chloride (NS Flush) 2 ml BID IV FLUSH 10/27/17 21:00 10/27/17 21:50 Ondansetron HCl (Zofran Inj) 4 mg Q6H PRN IVP NAUSEA OR VOMITING 10/27/17 20:15 10/28/17 08:39 Senna/Docusate Sodium (Dasha-Colace) 1 tab BID PO 10/27/17 21:00 10/27/17 21:49 Lorazepam (Ativan) 1 mg Q4H PRN PO CIWA 8 - 10 10/27/17 20:15 12/31/17 14:18 Lorazepam (Ativan) 2 mg Q2H PRN PO CIWA 11-14 10/27/17 20:15 10/28/17 01:42 Heparin Sodium (Porcine) (Heparin Inj) 5,000 units Q8H SQ 10/27/17 22:00 10/28/17 14:18 Sodium Chloride 1,000 ml @ 120 mls/hr Q8H20M IV 10/27/17 22:00 10/28/17 00:59 Multivitamins (Theragran) 1 tab DAILY PO 10/28/17 09:00 10/28/17 09:34 Folic Acid (Folate) 1 mg DAILY PO 10/28/17 09:00 10/28/17 09:34 Thiamine HCl 250 mg/Sodium Chloride 102.5 ml @ 101 mls/hr TID IV 10/28/17 13:00 10/28/17 12:34 Family History Breast cancer mother prostate cancer father Social History Early age EtOH abuse, quit for 16 years, restarted 1.5 years ago, 1 pint daily Pack a day tobacco use for 24 years Denies any illicit drugs (Jackie Zhao) Review of Systems Constitutional: COMPLAINS OF: Fatigue, Weight gain Gastrointestinal: COMPLAINS OF: Abdominal pain, Diarrhea, Nausea, Vomiting, Difficulty Swallowing (Jackie Zhao) GI Exam Vitals I&O Vital Signs Date Time Temp Pulse Resp B/P (MAP) Pulse Ox O2 Delivery O2 Flow Rate FiO2 10/28/17 12:00 96.6 96 20 139/77 (97) 93 10/28/17 08:00 97.8 88 20 121/83 (96) 92 10/28/17 04:02 98.2 100 18 129/77 (94) 96 10/28/17 00:07 98.9 88 18 121/76 (91) 96 10/27/17 21:11 98.1 95 16 131/78 (95) 95 10/27/17 20:55 10/27/17 19:00 98 20 141/72 (95) 96 Room Air 10/27/17 18:00 94 28 134/77 (96) 97 Room Air 10/27/17 16:00 98 22 144/79 (100) 95 Room Air 10/27/17 15:49 97.9 117 18 136/90 (105) 96 10/27/17 15:45 102 19 181/79 (113) 95 Room Air I/O 10/27/17 10/27/17 10/27/17 10/28/17 10/28/17 10/28/17 07:00 15:00 23:00 07:00 15:00 23:00 Intake Total 1100 ml 1000 ml 600 ml Balance 1100 ml 1000 ml 600 ml Intake IV Total 1100 ml 1000 ml 600 ml # Voids 4 # Bowel Movements 1 Imaging Last Impressions Chest X-Ray 10/28/17 0000 Signed Impressions: Service Date/Time: Saturday, October 28, 2017 11:41 - CONCLUSION: Suspected linear atelectasis at the right base. Jees Alvarez MD Brain MRI 10/28/17 0000 Signed Impressions: Service Date/Time: Saturday, October 28, 2017 09:52 - CONCLUSION: 1. Mild focal increased signal within the pontine white matter on the flair images. This could be a small area of demyelination. Osmotic demyelination syndrome causes signal abnormality in this region but typically is much more diffuse. 2. Mild atrophy with widening of the cortical sulci. Jese Alvarez MD Head CT 10/27/17 1604 Signed Impressions: Service Date/Time: Friday, October 27, 2017 16:13 - CONCLUSION: Slight atrophic and small vessel ischemic changes without any evidence for acute hemorrhage or mass effect. Nicole Kinney MD Laboratory Test 10/27/17 16:13 10/27/17 16:19 10/27/17 16:50 10/27/17 17:15 White Blood Count 9.8 TH/MM3 Red Blood Count 4.69 MIL/MM3 Hemoglobin 15.3 GM/DL Hematocrit 46.5 % Mean Corpuscular Volume 99.2 FL Mean Corpuscular Hemoglobin 32.6 PG Mean Corpuscular Hemoglobin Concent 32.9 % Red Cell Distribution Width 16.1 % Platelet Count 164 TH/MM3 Mean Platelet Volume 7.0 FL Neutrophils (%) (Auto) 88.4 % Lymphocytes (%) (Auto) 6.8 % Monocytes (%) (Auto) 4.1 % Eosinophils (%) (Auto) 0.1 % Basophils (%) (Auto) 0.6 % Neutrophils # (Auto) 8.6 TH/MM3 Lymphocytes # (Auto) 0.7 TH/MM3 Monocytes # (Auto) 0.4 TH/MM3 Eosinophils # (Auto) 0.0 TH/MM3 Basophils # (Auto) 0.1 TH/MM3 CBC Comment DIFF FINAL Differential Comment Prothrombin Time 10.0 SEC Prothromb Time International Ratio 1.0 RATIO Activated Partial Thromboplast Time 24.0 SEC Blood Urea Nitrogen 19 MG/DL Creatinine 0.99 MG/DL Random Glucose 93 MG/DL Total Protein 8.9 GM/DL Albumin 4.6 GM/DL Calcium Level 9.6 MG/DL Alkaline Phosphatase 63 U/L Aspartate Amino Transf (AST/SGOT) 97 U/L Alanine Aminotransferase (ALT/SGPT) 63 U/L Total Bilirubin 1.2 MG/DL Sodium Level 134 MEQ/L Potassium Level 4.5 MEQ/L Chloride Level 94 MEQ/L Carbon Dioxide Level 11.8 MEQ/L Anion Gap 28 MEQ/L Estimat Glomerular Filtration Rate 57 ML/MIN Phosphorus Level 2.8 MG/DL Magnesium Level 2.1 MG/DL Total Creatine Kinase 94 U/L Troponin I LESS THAN 0.02 NG/ML Thyroid Stimulating Hormone 3rd Gen 1.220 uIU/ML Ethyl Alcohol Level LESS THAN 3 MG/DL B-Hydroxybutyrate 9.60 MMOL/L Ammonia 23 MCMOL/L Urine Color YELLOW Urine Turbidity HAZY Urine pH 5.5 Urine Specific [place] 1.021 Urine Protein 30 mg/dL Urine Glucose (UA) NEG mg/dL Urine Ketones 150 mg/dL Urine Occult Blood TRACE Urine Nitrite NEG Urine Bilirubin NEG Urine Urobilinogen LESS THAN 2.0 MG/DL Urine Leukocyte Esterase MOD Urine RBC 3 /hpf Urine WBC 8 /hpf Urine Squamous Epithelial Cells 5 /hpf Urine Bacteria FEW /hpf Urine Hyaline Casts 46 /lpf Urine Mucus FEW /lpf Microscopic Urinalysis Comment CATH-CULTURE IND Urine Opiates Screen NEG Urine Barbiturates Screen NEG Urine Amphetamines Screen NEG Urine Benzodiazepines Screen NEG Urine Cocaine Screen NEG Urine Cannabinoids Screen NEG Test 10/27/17 18:40 10/28/17 06:28 10/28/17 13:27 Lactic Acid Level 3.1 mmol/L 1.0 mmol/L White Blood Count 7.9 TH/MM3 Red Blood Count 3.62 MIL/MM3 Hemoglobin 12.1 GM/DL Hematocrit 35.5 % Mean Corpuscular Volume 98.0 FL Mean Corpuscular Hemoglobin 33.5 PG Mean Corpuscular Hemoglobin Concent 34.2 % Red Cell Distribution Width 16.1 % Platelet Count 110 TH/MM3 Mean Platelet Volume 7.4 FL Neutrophils (%) (Auto) 83.2 % Lymphocytes (%) (Auto) 9.6 % Monocytes (%) (Auto) 6.6 % Eosinophils (%) (Auto) 0.3 % Basophils (%) (Auto) 0.3 % Neutrophils # (Auto) 6.6 TH/MM3 Lymphocytes # (Auto) 0.8 TH/MM3 Monocytes # (Auto) 0.5 TH/MM3 Eosinophils # (Auto) 0.0 TH/MM3 Basophils # (Auto) 0.0 TH/MM3 CBC Comment DIFF FINAL Differential Comment Blood Urea Nitrogen 19 MG/DL Creatinine 0.79 MG/DL Random Glucose 77 MG/DL Total Protein 6.4 GM/DL Albumin 3.3 GM/DL Calcium Level 7.7 MG/DL Alkaline Phosphatase 46 U/L Aspartate Amino Transf (AST/SGOT) 60 U/L Alanine Aminotransferase (ALT/SGPT) 43 U/L Total Bilirubin 1.1 MG/DL Sodium Level 139 MEQ/L Potassium Level 3.7 MEQ/L Chloride Level 104 MEQ/L Carbon Dioxide Level 19.7 MEQ/L Anion Gap 15 MEQ/L Estimat Glomerular Filtration Rate 74 ML/MIN Vitamin B12 Level 542 PG/ML Folate GREATER THAN 20.0 NG/ML Date/Time Source Procedure Growth Status 10/27/17 16:50 Urine Catheterized Urine Urine Culture - Final 50-100,000 CFU/ML MIXED JARVIS... Complete Physical Examination HEENT: Pupils round and reactive to light; normocephalic; atraumatic; no jaundice. Throat is clear. NECK: Neck is supple, no JVD, no lymphadenopathy. CHEST: Chest is clear to auscultation and percussion. CARDIAC: Regular rate and rhythm with no murmur gallop or rubs. ABDOMEN: Soft, nondistended, nontender; no hepatosplenomegaly; bowel sounds are present in all four quadrants. EXTREMITIES: No clubbing, cyanosis, or edema. SKIN: Normal; no rash; no jaundice. 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 (Jackie Zhao) Assessment and Plan Assessment: (1) Chronic diarrhea ICD Codes: K52.9 - Noninfective gastroenteritis and colitis, unspecified (2) Intermittent left upper quadrant abdominal pain ICD Codes: R10.12 - Left upper quadrant pain (3) Nausea and vomiting ICD Codes: R11.2 - Nausea with vomiting, unspecified (4) Dysphagia ICD Codes: R13.10 - Dysphagia, unspecified Plan Patient has dysphasia continues with nausea and vomiting, EGD done one year ago and symptoms have persisted Diarrhea appears to be acute on chronic but states currently is going approximately 8 times a day. Stool is dark, probable melena. Patient has had some travel within the last few months out of the country Plan EGD and colonoscopy 10/30/17 Nothing by mouth at midnight 10/30/17 Clear liquids now and until scope procedures are completed GoLYTELY prep 10/29/17 at 1600 Hold any blood thinner PPI Monitor for any acute bleeding Hemoccult stools Monitor labs Stool studies, enteric pathogen, ova and parasites, Hemoccult Plan of care will be based on patient's symptoms Patient was seen by myself and Dr. Sanchez, this note was written on his behalf (Jackie Zhao) Physician Comments Agree with above assessment and plan. (Morgan Sanchez MD) Jackie Zhao Oct 28, 2017 14:50 Morgan Sanchez MD Oct 28, 2017 18:02
--- NOTE | 2017-10-28 15:07 | HHI.HP ---
[facility] Service Family Medicine Primary Care Physician Unknown Admission Diagnosis KETOACIDOSIS Diagnoses: (1) Ketoacidosis (2) UTI (urinary tract infection) (3) Memory changes (4) FEN International Travel<30 Days: Yes Contact w/Intl Traveler<30days: [place] Country Traveled to: [facility] Known Affected Area: No History of Present Illness Patient was seen and examined at bedside. She is feeling significantly better today. She continues to have some symptoms of nausea, vomiting and diarrhea. She described having some black color diarrhea. Overall she believes symptoms are improving. Still has not had a very good appetite. Overall feeling much better. Doing well on the CIWA protocol. Denies any symptoms of chest pain, shortness of breath, or lightheadedness. We'll attempt to eat next meal. Review of Systems Constitutional: COMPLAINS OF: Fatigue, Weight loss, Dizziness, Change in appetite, DENIES: Fever, Weight gain, Chills Eyes: DENIES: Blurred vision, Diplopia, Eye pain, Vision loss Ears, nose, mouth, throat: DENIES: Tinnitus, Hearing loss Respiratory: DENIES: Cough, Snoring, Wheezing, Hemoptysis Cardiovascular: DENIES: Chest pain, Palpitations, Syncope Gastrointestinal: COMPLAINS OF: Black stools, Diarrhea, Nausea, Vomiting, Anorexia, DENIES: Abdominal pain, Bloody stools, Constipation Musculoskeletal: DENIES: Joint pain, Muscle aches, Stiffness, Joint Swelling Neurologic: COMPLAINS OF: Abnormal gait, Localized weakness, DENIES: Headache Psychiatric: COMPLAINS OF: Anxiety, Depression, DENIES: Confusion, Mood changes Past Family Social History Past Medical History none Past Surgical History Oophrectomy 2010 Appendectomy 2010 Allergies: Coded Allergies: Sulfa (Sulfonamide Antibiotics) (Verified Adverse Reaction, Intermediate, VOMITING, 10/27/17) Family History Sister: Thyroid issues Twin brother: "bad back and knees" no other chronic problems Mother: Breast cancer, at 63 Father: at 89, prostate Cancer Social History EtOH: Former alcoholic drank half pint - pint /day until age 40, sober until last year, drank for a year half to 1 pint/per vodka or wine or tequila. Stopped drinking 2 and half months ago. Tobacco: 1 pack per day for 24 years Drugs: none Physical Exam Vital Signs Vital Signs Date Time Temp Pulse Resp B/P (MAP) Pulse Ox O2 Delivery O2 Flow Rate FiO2 10/28/17 12:00 96.6 96 20 139/77 (97) 93 10/28/17 08:00 97.8 88 20 121/83 (96) 92 10/28/17 04:02 98.2 100 18 129/77 (94) 96 10/28/17 00:07 98.9 88 18 121/76 (91) 96 10/27/17 21:11 98.1 95 16 131/78 (95) 95 10/27/17 20:55 10/27/17 19:00 98 20 141/72 (95) 96 Room Air 10/27/17 18:00 94 28 134/77 (96) 97 Room Air 10/27/17 16:00 98 22 144/79 (100) 95 Room Air 10/27/17 15:49 97.9 117 18 136/90 (105) 96 10/27/17 15:45 102 19 181/79 (113) 95 Room Air Physical Exam GENERAL: This is a well-nourished, well-developed patient, in no apparent distress. SKIN: No rashes, ecchymoses or lesions. Cool and dry. HEAD: Atraumatic. Normocephalic. No temporal or scalp tenderness. EYES: Pupils equal round and reactive. Extraocular motions intact. No scleral icterus. No injection or drainage. ENT: Nose without bleeding, purulent drainage or septal hematoma. Throat without erythema, tonsillar hypertrophy or exudate. Uvula midline. Airway patent. NECK: Trachea midline. No JVD or lymphadenopathy. Supple, nontender, no meningeal signs. CARDIOVASCULAR: Regular rate and rhythm without murmurs, gallops, or rubs. RESPIRATORY: Clear to auscultation. Breath sounds equal bilaterally. No wheezes , rales, or rhonchi. GASTROINTESTINAL: Abdomen soft, non-tender, nondistended. No hepato-splenomegaly , or palpable masses. No guarding. MUSCULOSKELETAL: Extremities without clubbing, cyanosis, or edema. No joint tenderness, effusion, or edema noted. No calf tenderness. Negative Homans sign bilaterally. NEUROLOGICAL: Awake and alert. Cranial nerves II through XII intact. Motor and sensory grossly within normal limits. Five out of 5 muscle strength in all muscle groups. Normal speech. Laboratory Laboratory Tests Test 10/27/17 16:13 10/27/17 16:19 10/27/17 16:50 10/27/17 17:15 White Blood Count 9.8 Red Blood Count 4.69 Hemoglobin 15.3 Hematocrit 46.5 Mean Corpuscular Volume 99.2 Mean Corpuscular Hemoglobin 32.6 Mean Corpuscular Hemoglobin Concent 32.9 Red Cell Distribution Width 16.1 Platelet Count 164 Mean Platelet Volume 7.0 Neutrophils (%) (Auto) 88.4 Lymphocytes (%) (Auto) 6.8 Monocytes (%) (Auto) 4.1 Eosinophils (%) (Auto) 0.1 Basophils (%) (Auto) 0.6 Neutrophils # (Auto) 8.6 Lymphocytes # (Auto) 0.7 Monocytes # (Auto) 0.4 Eosinophils # (Auto) 0.0 Basophils # (Auto) 0.1 CBC Comment DIFF FINAL Differential Comment Prothrombin Time 10.0 Prothromb Time International Ratio 1.0 Activated Partial Thromboplast Time 24.0 Blood Urea Nitrogen 19 Creatinine 0.99 Random Glucose 93 Total Protein 8.9 Albumin 4.6 Calcium Level 9.6 Alkaline Phosphatase 63 Aspartate Amino Transf (AST/SGOT) 97 Alanine Aminotransferase (ALT/SGPT) 63 Total Bilirubin 1.2 Sodium Level 134 Potassium Level 4.5 Chloride Level 94 Carbon Dioxide Level 11.8 Anion Gap 28 Estimat Glomerular Filtration Rate 57 Phosphorus Level 2.8 Magnesium Level 2.1 Total Creatine Kinase 94 Troponin I LESS THAN 0.02 Thyroid Stimulating Hormone 3rd Gen 1.220 Ethyl Alcohol Level LESS THAN 3 B-Hydroxybutyrate 9.60 Ammonia 23 Urine Color YELLOW Urine Turbidity HAZY Urine pH 5.5 Urine Specific [place] 1.021 Urine Protein 30 Urine Glucose (UA) NEG Urine Ketones 150 Urine Occult Blood TRACE Urine Nitrite NEG Urine Bilirubin NEG Urine Urobilinogen LESS THAN 2.0 Urine Leukocyte Esterase MOD Urine RBC 3 Urine WBC 8 Urine Squamous Epithelial Cells 5 Urine Bacteria FEW Urine Hyaline Casts 46 Urine Mucus FEW Microscopic Urinalysis Comment CATH-CULTURE IND Urine Opiates Screen NEG Urine Barbiturates Screen NEG Urine Amphetamines Screen NEG Urine Benzodiazepines Screen NEG Urine Cocaine Screen NEG Urine Cannabinoids Screen NEG Test 10/27/17 18:40 10/28/17 06:28 10/28/17 13:27 Lactic Acid Level 3.1 1.0 White Blood Count 7.9 Red Blood Count 3.62 Hemoglobin 12.1 Hematocrit 35.5 Mean Corpuscular Volume 98.0 Mean Corpuscular Hemoglobin 33.5 Mean Corpuscular Hemoglobin Concent 34.2 Red Cell Distribution Width 16.1 Platelet Count 110 Mean Platelet Volume 7.4 Neutrophils (%) (Auto) 83.2 Lymphocytes (%) (Auto) 9.6 Monocytes (%) (Auto) 6.6 Eosinophils (%) (Auto) 0.3 Basophils (%) (Auto) 0.3 Neutrophils # (Auto) 6.6 Lymphocytes # (Auto) 0.8 Monocytes # (Auto) 0.5 Eosinophils # (Auto) 0.0 Basophils # (Auto) 0.0 CBC Comment DIFF FINAL Differential Comment Blood Urea Nitrogen 19 Creatinine 0.79 Random Glucose 77 Total Protein 6.4 Albumin 3.3 Calcium Level 7.7 Alkaline Phosphatase 46 Aspartate Amino Transf (AST/SGOT) 60 Alanine Aminotransferase (ALT/SGPT) 43 Total Bilirubin 1.1 Sodium Level 139 Potassium Level 3.7 Chloride Level 104 Carbon Dioxide Level 19.7 Anion Gap 15 Estimat Glomerular Filtration Rate 74 Vitamin B12 Level 542 Folate GREATER THAN 20.0 Date/Time Source Procedure Growth Status 10/27/17 16:50 Urine Catheterized Urine Urine Culture - Final 50-100,000 CFU/ML MIXED JARVIS... Complete Result Diagram: 10/28/17 0628 10/28/17 0628 Imaging Last [address] 10/27/17 1604 Signed Impressions: Service Date/Time: Friday, October 27, 2017 16:13 - CONCLUSION: Slight atrophic and small vessel ischemic changes without any evidence for acute hemorrhage or mass effect. Nicole Kinney MD Caprini VTE Risk Assessment Caprini VTE Risk Assessment: Mod/High Risk (score >= 2) Caprini Risk Assessment Model Point Value = 1 Point Value = 2 Point Value = 3 Point Value = 5 Age 41-60 Minor surgery BMI > 25 kg/m2 Swollen legs Varicose veins or History of unexplained or recurrent spontaneous Oral contraceptives or hormone replacement Sepsis (< 1 month) Serious lung disease, including pneumonia (< 1 month) Abnormal pulmonary function Acute myocardial infarction Congestive heart failure (< 1 month) History of inflammatory bowel disease Medical patient at bed rest Age 61-74 Arthroscopic surgery Major open surgery (> 45 min) Laparoscopic surgery (> 45 min) Malignancy Confined to bed (> 72 hours) Immobilizing plaster cast Central venous access Age >= 75 History of VTE Family history of VTE Factor V Leiden Prothrombin [id number] Lupus anticoagulant Anticardiolipin antibodies Elevated serum homocysteine Heparin-induced thrombocytopenia Other congenital or acquired thrombophilia Stroke (< 1 month) Elective arthroplasty Hip, pelvis, or leg fracture Acute spinal cord injury (< 1 month) Prophylaxis Regimen Total Risk Factor Score Risk Level Prophylaxis Regimen 0-1 Low Early ambulation 2 Moderate Order ONE of the following: *Sequential Compression Device (SCD) *Heparin 5000 units SQ BID 3-4 Higher Order ONE of the following medications: *Heparin 5000 units SQ TID *Enoxaparin/Lovenox 40 mg SQ daily (WT < 150 kg, CrCl > 30 mL/min) *Enoxaparin/Lovenox 30 mg SQ daily (WT < 150 kg, CrCl > 10-29 mL/min) *Enoxaparin/Lovenox 30 mg SQ BID (WT < 150 kg, CrCl > 30 mL/min) AND/OR *Sequential Compression Device (SCD) 5 or more Highest Order ONE of the following medications: *Heparin 5000 units SQ TID (Preferred with Epidurals) *Enoxaparin/Lovenox 40 mg SQ daily (WT < 150 kg, CrCl > 30 mL/min) *Enoxaparin/Lovenox 30 mg SQ daily (WT < 150 kg, CrCl > 10-29 mL/min) *Enoxaparin/Lovenox 30 mg SQ BID (WT < 150 kg, CrCl > 30 mL/min) AND *Sequential Compression Device (SCD) Assessment and Plan Assessment and Plan 62-year-old female who presented with nausea and vomiting. Increased confusion over the past 4 months, parkinsonian-like features. Metabolic derangements on admission. Anion gap 28. UA positive for UTI. Problem List: (1) Ketoacidosis ICD Codes: E87.2 - Acidosis Status: Acute Plan: Improving at this time Patient continues to stay hydrated Will allow her to eat Awaiting consultation of neurology Continue to monitor her labs Most likely due to starvation (2) UTI (urinary tract infection) ICD Codes: N39.0 - Urinary tract infection, site not specified Status: Acute Plan: Continue to treat patient Symptoms have improved Continue to monitor Continued hydration (3) Memory changes ICD Codes: R41.3 - Other amnesia Status: Acute Plan: Reviewed MRI Appreciate input from neurology and psychiatry Follow-up the patient's labs Does have a very long history of alcohol abuse, possible detoxi Placed on CIWA (4) FEN Plan: Fluids: -Maintenance fluids 120 mL/h Electrolytes: -Monitor and replete as needed Nutrition: -Reg diet Parts of this note were created using [employer] voice recognition software program. While efforts were made to correct any mistakes made by this software, some mistakes, errors, and omissions may remain in the final note that were not caught when the note was originally created. Plan of care was discussed and agreed upon with the patient as specifically documented in the above note. An opportunity to ask questions with explanation was provided. Patient voiced understanding on all information reviewed and discussed. Physician Certification 2 Midnight Certification Type: Admission for Inpatient Services Order for Inpatient Services The services are ordered in accordance with Medicare regulations or non- Medicare payer requirements, as applicable. In the case of services not specified as inpatient-only, they are appropriately provided as inpatient services in accordance with the 2-midnight benchmark. Estimated LOS (days): 2 days is the estimated time the patient will need to remain in the hospital, assuming treatment plan goals are met and no additional complications. Post-Hospital Plan: Home Problem Qualifiers (1) UTI (urinary tract infection): Qualified Codes: N39.0 - Urinary tract infection, site not specified Gabino Brennan MD Oct 28, 2017 15:07
--- NOTE | 2017-10-28 17:35 | RADRPT ---
EXAM DATE/TIME: 10/28/2017 17:02 [facility] COMPARISON: No previous studies available for comparison. INDICATIONS : Slurred speech. MEDICAL HISTORY : Cervical stenosis. Tremors. Memory loss. ETOH abuse. SURGICAL HISTORY : Appendectomy. Oophorectomy. Bowel resection. ENCOUNTER: Initial ACUITY: 1 day PAIN SCORE: 0/10 LOCATION: Bilateral neck PEAK SYSTOLIC VELOCITIES (cm/sec): ICA/CCA RATIO: Right: 1.0 Left: 1.0 ICA: Right: 67.7 Left: 66.9 CCA: Right: 67.2 Left: 64.2 ECA: Right: 86.4 Left: 99.2 VERTEBRAL: Right: 36.7 antegrade Left: 46.0 antegrade Elevated flow velocities and ICA/CCA ratios have been found to correlate with increased degrees of vessel stenosis, calculated as percentage of diameter relative to a normal segment of distal ICA/CCA FINDINGS: Antegrade flow is seen in both vertebral arteries. There is mild atherosclerotic plaquing at the orig in of both ICAs without any significant stenosis. CONCLUSION: No evidence for hemodynamically significant stenosis. Nicole Kinney MD on October 28, 2017 at 17:32 Board Certified Radiologist. This report was verified electronically.
[2017-10-28] MEDS ORDERED: cefTRIAXone INJ 1,000 MG in SODIUM CHLORIDE 0.9% INJ 100 ML IV SCH (18:00)
[2017-10-28] MEDS: PANTOPRAZOLE SOD 40 MG DELAYED RELEASE TAB PO SCH (22:10)
[2017-10-29] VITALS (8 sets, daily range): BP systolic 113–161; BP diastolic 59–88; PULSE 79–92; RESP 17–20; TEMP 96.6–98.9; O2SAT 93–97
[2017-10-29] MEDS: LORazepam 2 MG TAB PO PRN ×4 (04:22→17:16)
[2017-10-29] MEDS: HEPARIN SODIUM - SQ 10,000 UNITS/ML VIAL SQ SCH ×3 (06:28→21:16)
[2017-10-29] MEDS: SODIUM CHLOR 0.9% 1000 ML INJ 1,000 ML IV SCH ×3 (06:33→21:17)
[2017-10-29] MEDS: SODIUM CHLORIDE 0.9% FLUSH 10 ML FLUSH IV FLUSH SCH ×2 (09:00→21:00)
[2017-10-29] MEDS: DOCUSATE SODIUM 50 MG/SENNA 8.6 MG TAB PO SCH ×2 (09:00→21:00)
[2017-10-29] MEDS: THIAMINE INJ 250 MG in SODIUM CHLORIDE 0.9% INJ 100 ML IV SCH ×3 (09:47→16:32)
[2017-10-29] MEDS: MULTIVITAMIN TAB PO SCH (09:47)
[2017-10-29] MEDS: PANTOPRAZOLE SOD 40 MG DELAYED RELEASE TAB PO SCH ×2 (09:47→21:16)
[2017-10-29] MEDS: FOLIC ACID 1 MG TAB PO SCH (09:47)
[2017-10-29 10:14] LABS: AUTOMATED NEUTROPHIL # 2.1 TH/MM3 (1.8-7.7); BASOPHIL % 0.5 % (0.0-2.0); EOSINOPHIL # 0.1 TH/MM3 (0-0.4); EOSINOPHIL % 2.9 % (0.0-4.0); HEMATOCRIT 37.3 % (35.0-46.0); HEMOGLOBIN 12.5 GM/DL (11.6-15.3); LYMPH % 27.8 % (9.0-44.0); MEAN CELL VOLUME 98.2 FL (80.0-100.0); MEAN CORPUSCULAR HGB CONC 33.6 % (32.0-36.0); MEAN PLATELET VOLUME 7.3 FL (7.0-11.0); MONOCYTE # 0.3 TH/MM3 (0-0.9); NEUT % 60.8 % (16.0-70.0); PLATELET COUNT 79 TH/MM3 (150-450); WHITE BLOOD COUNT 3.5 TH/MM3 (4.0-11.0)
--- NOTE | 2017-10-29 10:20 | MG ---
cc: HU ORDONEZ M.D. Lab No: [id number] Date: 10/29/2017 Age: 62 Sex: F Race: DATE OF : 1955 Room 1729 with photic stimulation, awake, drowsy, asleep. MRI shows just mild signal change in the pontine area. No abnormal enhancement, no acute infarct. History of increased forgetfulness in this 62-year-old woman and also with a history of alcoholism, on vitamins. DESCRIPTION OF RECORD Quite a bit of muscle artifact in the EEG, however, overall normal alpha seen, 8-9 Hz. Symmetrical low amplitude EEG. EKG looks sinus. No epileptiform features. She tends to fall asleep, starts snoring, some attenuation of the background. Photic stimulation does elicit a posterior driving response. IMPRESSION Overall normal-appearing EEG, no evidence of any significant attenuation or epileptiform features. Clinical correlation. MD DESIREE Carpenter/CORRINA /9:44 AM /9:58 AM
[2017-10-29 10:36] LABS: ALBUMIN 3.3 GM/DL (3.4-5.0); ALT (GPT) 44 U/L (10-53); AST (GOT) 66 U/L (15-37); BICARBONATE 23.8 MEQ/L (21.0-32.0); BLOOD UREA NITROGEN 13 MG/DL (7-18); CHLORIDE 105 MEQ/L (98-107); CREATININE 0.58 MG/DL (0.50-1.00); GLOMERULAR FILTRATION RATE 105 ML/MIN (>89); GLUCOSE,RANDOM 85 MG/DL (74-106); SODIUM (NA) 139 MEQ/L (136-145)
[2017-10-29 10:38] LABS: ALKALINE PHOSPHATASE 46 U/L (45-117); TOTAL BILIRUBIN ADULT 0.8 MG/DL (0.2-1.0); TOTAL PROTEIN 6.5 GM/DL (6.4-8.2)
--- NOTE | 2017-10-29 11:12 | HHI.FPPN ---
Subjective Remarks Patient seen and examined this morning. No acute events overnight. Patient states she feels better mentation has improved slightly. She states she's had several diarrhea symptoms overnight. Her stool is still dark. Denies any chest pain, shortness of breath, abdominal pain, leg pain. Ate some food yesterday without nausea/vomiting. Objective Vitals Vital Signs Date Time Temp Pulse Resp B/P (MAP) Pulse Ox O2 Delivery O2 Flow Rate FiO2 10/29/17 08:00 80 10/29/17 08:00 97.8 88 17 113/74 (87) 93 10/29/17 04:18 96.6 88 18 121/84 (96) 94 10/29/17 00:16 92 10/29/17 00:13 98.9 92 18 123/59 (80) 96 10/28/17 20:33 98.2 95 17 116/66 (83) 97 10/28/17 20:09 87 10/28/17 16:00 97.9 83 18 124/74 (91) 92 10/28/17 12:00 96.6 96 20 139/77 (97) 93 I/O 10/28/17 10/28/17 10/28/17 10/29/17 10/29/17 10/29/17 07:00 15:00 23:00 07:00 15:00 23:00 Intake Total 1000 ml 600 ml 620 ml 1380 ml Balance 1000 ml 600 ml 620 ml 1380 ml Intake Oral 620 ml 380 ml IV Total 1000 ml 600 ml 1000 ml # Voids 4 3 5 # Bowel Movements 1 5 3 Result Diagram: 10/29/17 0937 10/29/17 0937 Imaging Last Impressions Chest X-Ray 10/28/17 0000 Signed Impressions: Service Date/Time: Saturday, October 28, 2017 11:41 - CONCLUSION: Suspected linear atelectasis at the right base. Jese Alvarez MD Carotid Artery Ultrasound 10/28/17 0000 Signed Impressions: Service Date/Time: Saturday, October 28, 2017 17:02 - CONCLUSION: No evidence for hemodynamically significant stenosis. Nicole Kinney MD Brain MRI 10/28/17 0000 Signed Impressions: Service Date/Time: Saturday, October 28, 2017 09:52 - CONCLUSION: 1. Mild focal increased signal within the pontine white matter on the flair images. This could be a small area of demyelination. Osmotic demyelination syndrome causes signal abnormality in this region but typically is much more diffuse. 2. Mild atrophy with widening of the cortical sulci. Jese Alvarez MD Head CT 10/27/17 1604 Signed Impressions: Service Date/Time: Sunday, October 27, 2017 16:13 - CONCLUSION: Slight atrophic and small vessel ischemic changes without any evidence for acute hemorrhage or mass effect. Nicole Kinney MD Objective Remarks GENERAL: NAD, lying in bed SKIN: Warm and dry. CARDIOVASCULAR: Regular rate and rhythm. RESPIRATORY: No accessory muscle use. Clear to auscultation. Breath sounds equal bilaterally. GASTROINTESTINAL: Abdomen soft, non-tender, nondistended. MUSCULOSKELETAL: Extremities without clubbing, cyanosis, or edema. No obvious deformities. NEUROLOGICAL: Awake and alert. No obvious cranial nerve deficits. Improved [id number]-al-fqmj testing today. Normal speech. PSYCHIATRIC: Appropriate mood and affect; insight and judgment normal. A/P Assessment and Plan 62-year-old female who presented with nausea and vomiting. Increased confusion over the past 4 months, parkinsonian-like features. Metabolic derangements on admission. Anion gap 28. UA positive for UTI. Discharge Planning Pending neurology and GI workup Problem List: (1) Memory changes ICD Codes: R41.3 - Other amnesia Status: Acute Plan: MRI: small area of demyelination. mild atrophy Carotid US: negative CXR: linear atelectasis EEG normal Neurology consulted-appreciate recs -B12 normal -B6, thiamine pending -Folate >20 Psychiatry consulted-appreciate recs Placed on home multivitamins, folate recently prescribed Placed on [facility] Neuro checks On admission: Reports 4 months of worsening forgetfulness, flat affect, decreased interest and others, shuffling gait. Increasingly decreased appetite, anorexic for the past 5 days. Reports new onset tremors today. Possibly dementia (Lewy body versus vascular). Past history of alcoholism, ethyl alcohol less than 3 today. (2) GI bleed ICD Codes: K92.2 - Gastrointestinal hemorrhage, unspecified Plan: Developed diarrhea and melena reported on admission Hemoccult positive GI consulted-appreciate recs -EGD/colonoscopy 10/30/17 -PPI -Stool studies negative -Stool ova/parasites pending Monitor Hgb-stable -Tranfuse PRN (3) Ketoacidosis ICD Codes: E87.2 - Acidosis Status: Acute Plan: Improving at this time Patient continues to stay hydrated Continue to monitor her labs Most likely due to starvation (4) UTI (urinary tract infection) ICD Codes: N39.0 - Urinary tract infection, site not specified Status: Acute Plan: Continue to treat patient. Symptoms have resolved Urine culture: Contaminants -Stop Rocephin today (5) FEN Plan: Fluids: -Maintenance fluids 120 mL/h Electrolytes: -Monitor and replete as needed Nutrition: -Reg diet Parts of this note were created using [employer] voice recognition software program. While efforts were made to correct any mistakes made by this software, some mistakes, errors, and omissions may remain in the final note that were not caught when the note was originally created. Plan of care was discussed and agreed upon with the patient as specifically documented in the above note. An opportunity to ask questions with explanation was provided. Patient voiced understanding on all information reviewed and discussed. Problem Qualifiers (1) UTI (urinary tract infection): Qualified Codes: N39.0 - Urinary tract infection, site not specified Juan Daniel Saeed MD, R2 Oct 29, 2017 11:12
[2017-10-29] MEDS ORDERED: CALCIUM CARBONATE 1.25 GM (CA 500 MG) TAB PO ONE (11:15)
[2017-10-29] MEDS ORDERED: POTASSIUM CHLORIDE 10 MEQ CAP PO ONE (11:15)
[2017-10-29] MEDS ORDERED: POTASSIUM CHLORIDE 20 MEQ CONTROLLED RELEASE TAB PO ONE (13:15)
--- NOTE | 2017-10-29 14:46 | PD.PSY.CON ---
Provisional Diagnosis Admission Date Oct 27, 2017 at 18:38 [place] I. Adjustment disorder with depressed mood, alcohol use disorder [place] II. Deferred [place] III. No significant medical history History of Present Illness Service Psychiatry Consult Requested By Medical team Reason for Consult Depressive symptoms, symptoms of catatonia Primary Care Physician Unknown HPI The patient is a 62-year-old woman, domiciled with her , unemployed, supported by [facility], without no previous psychiatric history, no previous suicidal attempts, no previous psychiatric hospitalizations, history of alcohol use disorder, no significant medical history, who presented with nausea and vomiting. Increased confusion over the past 4 months, parkinsonian- like features. Metabolic derangements on admission. Anion gap 28. UA positive for UTI. He was evaluated by neurology. MRI small area of demyelination. mild atrophy. EEG normal. on initial evaluation she reported 4 months of worsening forgetfulness, flat affect, decreased interest and others, shuffling gait. Increasingly decreased appetite, anorexic for the past 5 days. Reports new onset tremors today. Possibly dementia (Lewy body versus vascular). Past history of alcoholism, ethyl alcohol less than 3 today. Consulted to psychiatry to assess symptomatology of depression. On psychiatric evaluation today the patient is calm, cooperative, tearful at times. Patient says that she has been feeling rare in the last months. He says is difficult for her to describe the sensations that she is having. Sometimes she feels that she is losing her memory. Over today in cognitive assessment patient is fully oriented 3, and perfect never single aspect of Mini-Mental state. She reports that she has been feeling sad and overwhelmed due to the sense of losing the control of herself. She said that she is able been a person in control of her body and her surroundings "but I feel old, sick, and engaging in situations that I cannot control". At the beginning she denies overusing alcohol. But, later in the interview she started crying stating that "maybe I have been drinking too much". She reports episodes of tremors, forgetfulness in the context of alcohol intake. She denies the use of other drugs. She denies suicidal and homicidal ideation, she denies visual and auditory hallucinations. Patient is future oriented, she says that her plan is to take her medication, to exercise, to avoid alcohol. Review of Systems Constitutional: DENIES: Diaphoretic episodes, Fatigue, Fever, Weight gain, Weight loss, Chills, Dizziness, Change in appetite, Night Sweats Endocrine: DENIES: Abnorml menstrual pattern, Heat/cold intolerance, Polydipsia , Polyuria, Polyphagia Eyes: DENIES: Blurred vision, Diplopia, Eye inflammation, Eye pain, Vision loss , Photosensitivity, Double Vision Ears, nose, mouth, throat: DENIES: Tinnitus, Hearing loss, Vertigo, Nasal discharge, Oral lesions, Throat pain, Hoarseness, Ear Pain, Running Nose, Epistaxis, Sinus Pain, Toothache, Odynophagia Respiratory: DENIES: Apneas, Cough, Snoring, Wheezing, Hemoptysis, Sputum production, Shortness of breath Cardiovascular: DENIES: Chest pain, Palpitations, Syncope, Dyspnea on Exertion , PND, Lower Extremity Edema, Orthopnea, Claudication Gastrointestinal: DENIES: Abdominal pain, Black stools, Bloody stools, Constipation, Diarrhea, Nausea, Vomiting, Difficulty Swallowing, Anorexia Genitourinary: DENIES: Abnormal vaginal bleeding, Dysmenorrhea, Dyspareunia, Sexual dysfunction, Urinary frequency, Urinary incontinence, Urgency, Hematuria , Dysuria, Nocturia, Vaginal discharge Musculoskeletal: DENIES: Joint pain, Muscle aches, Stiffness, Joint Swelling, Back pain, Neck pain Integumentary: DENIES: Abnormal pigmentation, Pruritus, Rash, Nail changes, Breast masses, Breast skin changes, Nipple discharge Hematologic/lymphatic: DENIES: Bruising, Lymphadenopathy Immunologic/allergic: DENIES: Eczema, Urticaria Neurologic: DENIES: Abnormal gait, Headache, Localized weakness, Paresthesias, Seizures, Speech Problems, Tremor, Poor Balance Psychiatric: DENIES: Anxiety, Confusion, Mood changes, Depression, Hallucinations, Agitation, Suicidal Ideation, Homicidal Ideation, Delusions Past Family Social History Coded Allergies: Sulfa (Sulfonamide Antibiotics) (Verified Adverse Reaction, Intermediate, VOMITING, 10/27/17) Current Medications Medications (Trade) Dose Ordered Sig/Agustina Route Start Time Stop Time Status Last Admin (NS Flush) 2 ml UNSCH PRN IV FLUSH 10/27/17 20:15 (NS Flush) 2 ml BID IV FLUSH 10/27/17 21:00 10/29/17 09:00 (Tylenol) 650 mg Q4H PRN PO 10/27/17 20:15 (Zofran Inj) 4 mg Q6H PRN IVP 10/27/17 20:15 10/28/17 17:30 (Narcan Inj) 0.4 mg UNSCH PRN IV PUSH 10/27/17 20:15 (Dasha-Colace) 1 tab BID PO 10/27/17 21:00 10/27/17 21:49 (Milk Of Magnesia Liq) 30 ml Q12H PRN PO 10/27/17 20:15 (Senokot) 17.2 mg Q12H PRN PO 10/27/17 20:15 (Dulcolax Supp) 10 mg DAILY PRN RECTAL 10/27/17 20:15 (Lactulose Liq) 30 ml DAILY PRN PO 10/27/17 20:15 (Romazicon Inj) 0.2 mg Q1M PRN IV PUSH 10/27/17 20:15 (Ativan) 1 mg Q4H PRN PO 10/27/17 20:15 10/28/17 22:17 (Ativan Inj) 1 mg Q4H PRN IV PUSH 10/27/17 20:15 (Ativan) 2 mg Q2H PRN PO 10/27/17 20:15 10/29/17 13:05 (Ativan Inj) 2 mg Q2H PRN IV PUSH 10/27/17 20:15 (Ativan Inj) 2 mg Q1H PRN IV PUSH 10/27/17 20:15 (Ativan Inj) 2 mg Q15M PRN IV PUSH 10/27/17 20:15 (Heparin Inj) 5,000 units Q8H SQ 10/27/17 22:00 10/29/17 06:28 Sodium Chloride 1,000 ml @ 120 mls/hr Q8H20M IV 10/27/17 22:00 10/29/17 06:33 (Theragran) 1 tab DAILY PO 10/28/17 09:00 10/29/17 09:47 (Folate) 1 mg DAILY PO 10/28/17 09:00 10/29/17 09:47 (Imodium) 2 mg Q6H PRN PO 10/28/17 11:30 Future Hold Thiamine HCl 250 mg/Sodium Chloride 102.5 ml @ 101 mls/hr TID IV 10/28/17 13:00 Future hold 10/29/17 13:05 (Colyte Liq) 4,000 ml ONCE ONCE PO 10/29/17 16:00 10/29/17 16:01 (Protonix) 40 mg Q12HR PO 10/28/17 21:00 10/29/17 09:47 Family Psych History She denies family psychiatric history Social History Patient was born and raised in [place], she lives with her , she is unemployed, 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 Patient's Strengths (min. 2) High level of education Physical Exam No tremors, no EPS, no stiffness, no psychomotor agitation retardation at this moment, no catatonia symptoms noted Vital Signs Vital Signs Date Time Temp Pulse Resp B/P (MAP) Pulse Ox O2 Delivery O2 Flow Rate FiO2 10/29/17 12:00 97.9 83 17 132/76 (94) 97 10/27/17 19:00 Room Air I/O 10/29/17 10/29/17 10/30/17 08:00 16:00 00:00 Intake Total 1380 ml 202.5 ml Balance 1380 ml 202.5 ml Lab Results Test 10/28/17 15:40 10/29/17 09:37 White Blood Count 3.5 TH/MM3 Red Blood Count 3.80 MIL/MM3 Hemoglobin 12.5 GM/DL Hematocrit 37.3 % Mean Corpuscular Volume 98.2 FL Mean Corpuscular Hemoglobin 33.0 PG Mean Corpuscular Hemoglobin Concent 33.6 % Red Cell Distribution Width 16.0 % Platelet Count 79 TH/MM3 Mean Platelet Volume 7.3 FL Neutrophils (%) (Auto) 60.8 % Lymphocytes (%) (Auto) 27.8 % Monocytes (%) (Auto) 8.0 % Eosinophils (%) (Auto) 2.9 % Basophils (%) (Auto) 0.5 % Neutrophils # (Auto) 2.1 TH/MM3 Lymphocytes # (Auto) 1.0 TH/MM3 Monocytes # (Auto) 0.3 TH/MM3 Eosinophils # (Auto) 0.1 TH/MM3 Basophils # (Auto) 0.0 TH/MM3 CBC Comment AUTO DIFF Differential Comment AUTO DIFF CONFIRMED Platelet Estimate LOW Platelet Morphology Comment NORMAL Red Cell Morphology Comment NORMAL Blood Urea Nitrogen 13 MG/DL Creatinine 0.58 MG/DL Random Glucose 85 MG/DL Total Protein 6.5 GM/DL Albumin 3.3 GM/DL Calcium Level 8.0 MG/DL Alkaline Phosphatase 46 U/L Aspartate Amino Transf (AST/SGOT) 66 U/L Alanine Aminotransferase (ALT/SGPT) 44 U/L Total Bilirubin 0.8 MG/DL Sodium Level 139 MEQ/L Potassium Level 3.2 MEQ/L Chloride Level 105 MEQ/L Carbon Dioxide Level 23.8 MEQ/L Anion Gap 10 MEQ/L Estimat Glomerular Filtration Rate 105 ML/MIN Date/Time Source Procedure Growth Status 10/28/17 16:30 Stool Stool Cryptosporidium Exam Pending Received 10/28/17 16:30 Stool Stool Giardia Antigen (BEN) Pending Received 10/27/17 16:50 Urine Catheterized Urine Urine Culture - Final 50-100,000 CFU/ML MIXED JARVIS... Complete Mental Status Examination Appearance: Appropriate Consciousness: Alert Orientation: x4 Motor Activity: Normal gait Speech: Unremarkable Language: Adequate Fund of Knowledge: Adequate Attention and Concentration: Adequate Memory: Unremarkable Mood: Sad Affect: Sad Thought Process & Associations: Intact Thought Content: Appropriate Hallucination Type: None Delusion Type: None Suicidal Ideation: No Suicidal Plan: No Suicidal Intention: No Homicidal Ideation: No Homicidal Plan: No Homicidal Intention: No Insight: Adequate Judgment: Adequate Assessment & Plan Problem List: (1) Adjustment disorder with depressed mood ICD Codes: F43.21 - Adjustment disorder with depressed mood Assessment & Plan: On psychiatric evaluation today the patient presents with symptomatology of mild depression consisting in sadness, flat affect, difficulty sleeping at night, Frequent episodes of her forgetfulness, sensation of losing control, periods of crying spells, in the context of increased alcohol use. The patient denies suicidal and homicidal ideation, she denies visual and auditory hallucinations. Patient is oriented 3, no gross cognitive impairment present. No alcohol withdrawal symptoms at this moment. She does not meet criteria for involuntary psychiatric admission at this moment. will order trazodone on 100 mg at bedtime for depression and insomnia. Brief supportive psychotherapy, psychoeducation motivation provided. We'll follow-up. Assessment & Plan Estimated LOS: Yony Chapin MD Oct 29, 2017 14:46
[2017-10-29] MEDS ORDERED: PEG (High)/E-LYTE SOLN 4000 ML BTL PO ONE (16:00)
[2017-10-29] MEDS: traZODone HCL 100 MG TAB PO SCH (21:16)
[2017-10-29] MEDS: LORazepam 1 MG TAB PO PRN (21:16)
[2017-10-30] VITALS (8 sets, daily range): BP systolic 122–140; BP diastolic 58–90; PULSE 77–95; RESP 16–22; TEMP 95.8–98.9; O2SAT 92–96
[2017-10-30] MEDS ORDERED: LACTATED RINGER'S 1000 ML IV PRN (02:15)
[2017-10-30] MEDS ORDERED: SODIUM CHLORID 0.9% 500 ML IV PRN (02:15)
[2017-10-30] MEDS: SODIUM CHLOR 0.9% 1000 ML INJ 1,000 ML IV SCH ×2 (03:40→21:14)
[2017-10-30 07:18] LABS: HEMATOCRIT 34.4 % (35.0-46.0); HEMOGLOBIN 11.8 GM/DL (11.6-15.3); MEAN CELL VOLUME 97.7 FL (80.0-100.0); MEAN CORPUSCULAR HEMOGLOBIN 33.5 PG (27.0-34.0); MEAN CORPUSCULAR HGB CONC 34.3 % (32.0-36.0); MEAN PLATELET VOLUME 7.3 FL (7.0-11.0); PLATELET COUNT 75 TH/MM3 (150-450); RED BLOOD COUNT 3.52 MIL/MM3 (4.00-5.30); RED CELL DISTRIBUTION WIDTH 15.8 % (11.6-17.2); WHITE BLOOD COUNT 3.7 TH/MM3 (4.0-11.0)
[2017-10-30 07:48] LABS: BICARBONATE 25.4 MEQ/L (21.0-32.0); CALCIUM 7.9 MG/DL (8.5-10.1); CREATININE 0.52 MG/DL (0.50-1.00)
[2017-10-30] MEDS: THIAMINE INJ 250 MG in SODIUM CHLORIDE 0.9% INJ 100 ML IV SCH ×3 (07:58→17:13)
[2017-10-30] MEDS: SODIUM CHLORIDE 0.9% FLUSH 10 ML FLUSH IV FLUSH SCH ×2 (07:59→21:00)
[2017-10-30] MEDS: PANTOPRAZOLE SOD 40 MG DELAYED RELEASE TAB PO SCH ×2 (07:59→21:14)
[2017-10-30] MEDS: FOLIC ACID 1 MG TAB PO SCH (07:59)
[2017-10-30] MEDS: MULTIVITAMIN TAB PO SCH (07:59)
[2017-10-30] MEDS: DOCUSATE SODIUM 50 MG/SENNA 8.6 MG TAB PO SCH ×2 (07:59→21:00)
--- NOTE | 2017-10-30 11:30 | HHI.FPPN ---
Subjective Remarks Patient seen and examined today. No acute events overnight. States she's feeling better today, less tremors, less confusion. She has had diarrhea the past couple days, however she states she didn't really have diarrhea yesterday because she was on Go[place]. Her bowel movements started off "like bile" and progressively became clear. No blood, black spots noted. No nausea, vomiting, fever, chills, abdominal pain, chest pain, shortness of breath. (Alfredo Boswell MD R1) Objective Vitals Vital Signs Date Time Temp Pulse Resp B/P (MAP) Pulse Ox O2 Delivery O2 Flow Rate FiO2 10/30/17 11:05 97.2 87 16 158/77 (104) 97 10/30/17 08:00 82 10/30/17 08:00 95.8 82 16 122/58 (79) 92 10/30/17 04:21 78 10/30/17 04:00 98.4 95 18 125/70 (88) 96 10/30/17 00:07 82 10/30/17 00:00 98.1 91 18 137/80 (99) 92 10/29/17 20:01 79 10/29/17 20:00 98.5 84 20 161/88 (112) 97 10/29/17 16:00 98.7 84 18 144/82 (102) 96 10/29/17 12:00 97.9 83 17 132/76 (94) 97 I/O 10/29/17 10/29/17 10/29/17 10/30/17 10/30/17 10/30/17 07:00 15:00 23:00 07:00 15:00 23:00 Intake Total 1380 ml 202.5 ml 1700 ml 1479 ml Output Total 800 ml Balance 1380 ml 202.5 ml 900 ml 1479 ml Intake Oral 380 ml 700 ml 720 ml IV Total 1000 ml 202.5 ml 1000 ml 759 ml Output Urine Total 800 ml # Voids 5 4 # Bowel Movements 3 5 0 (Alfredo Boswell MD R1) Result Diagram: 10/30/17 0632 10/30/17 0632 Objective Remarks GENERAL: NAD, lying in bed SKIN: Warm and dry. CARDIOVASCULAR: Regular rate and rhythm. RESPIRATORY: No accessory muscle use. Clear to auscultation. Breath sounds equal bilaterally. GASTROINTESTINAL: Abdomen soft, non-tender, nondistended. MUSCULOSKELETAL: Extremities without clubbing, cyanosis, or edema. No obvious deformities. NEUROLOGICAL: Awake and alert. No obvious cranial nerve deficits. Improved ugkfgj-qg-qcot testing today, minimal intention tremor, no dysmetria. Normal speech. PSYCHIATRIC: Appropriate mood and affect; insight and judgment normal. (Alfredo Boswell MD R1) A/P Assessment and Plan 62-year-old female who presented with nausea and vomiting. Increased confusion over the past 4 months, parkinsonian-like features. Metabolic derangements on admission. Anion gap 28. UA positive for UTI. Discharge Planning Pending neurology and GI workup (Alfredo Boswell MD R1) Problem List: (1) Memory changes ICD Codes: R41.3 - Other amnesia Status: Acute Plan: MRI: small area of demyelination. mild atrophy Carotid US: negative CXR: linear atelectasis EEG normal -Follow up HIV -RPR negative -Follow up blood smear Neurology consulted-appreciate recs -B12 normal -B6, thiamine pending -Folate >20 Psychiatry consulted-appreciate recs * Does not meet criteria for involuntary psychiatric admission * Notes mild depression, on trazodone 100 mg at bedtime Placed on home multivitamins, folate recently prescribed Placed on [facility] Neuro checks On admission: Reports 4 months of worsening forgetfulness, flat affect, decreased interest and others, shuffling gait. Increasingly decreased appetite, anorexic for the past 5 days. Reports new onset tremors today. Possibly dementia (Lewy body versus vascular). Past history of alcoholism, ethyl alcohol less than 3 today. (2) GI bleed ICD Codes: K92.2 - Gastrointestinal hemorrhage, unspecified Plan: Developed diarrhea and melena reported on admission Hemoccult positive GI consulted-appreciate recs -EGD/colonoscopy 10/30/17, follow-up results -PPI -Stool studies negative -Stool ova/parasites pending Monitor Hgb-stable -Tranfuse PRN (3) Ketoacidosis ICD Codes: E87.2 - Acidosis Status: Acute Plan: Improving at this time Patient continues to stay hydrated Continue to monitor her labs Most likely due to starvation (4) UTI (urinary tract infection) ICD Codes: N39.0 - Urinary tract infection, site not specified Status: Acute Plan: Continue to treat patient. Symptoms have resolved Urine culture: Contaminants -Stop Rocephin today (5) FEN Plan: Fluids: -Maintenance fluids 120 mL/h Electrolytes: -Monitor and replete as needed Nutrition: -Reg diet Parts of this note were created using [employer] voice recognition software program. While efforts were made to correct any mistakes made by this software, some mistakes, errors, and omissions may remain in the final note that were not caught when the note was originally created. Plan of care was discussed and agreed upon with the patient as specifically documented in the above note. An opportunity to ask questions with explanation was provided. Patient voiced understanding on all information reviewed and discussed. (Alfredo Boswell MD R1) Problem List: (1) Memory changes ICD Codes: R41.3 - Other amnesia Status: Acute Plan: MRI: small area of demyelination. mild atrophy Carotid US: negative CXR: linear atelectasis EEG normal -Follow up HIV -RPR negative -Follow up blood smear Neurology consulted-appreciate recs -B12 normal -B6, thiamine pending -Folate >20 Psychiatry consulted-appreciate recs * Does not meet criteria for involuntary psychiatric admission * Notes mild depression, on trazodone 100 mg at bedtime Placed on home multivitamins, folate recently prescribed Placed on [facility] Neuro checks On admission: Reports 4 months of worsening forgetfulness, flat affect, decreased interest and others, shuffling gait. Increasingly decreased appetite, anorexic for the past 5 days. Reports new onset tremors today. Possibly dementia (Lewy body versus vascular). Past history of alcoholism, ethyl alcohol less than 3 today. (2) GI bleed ICD Codes: K92.2 - Gastrointestinal hemorrhage, unspecified Plan: Developed diarrhea and melena reported on admission Hemoccult positive GI consulted-appreciate recs -EGD/colonoscopy 10/30/17, follow-up results -PPI -Stool studies negative -Stool ova/parasites pending Monitor Hgb-stable -Tranfuse PRN (3) Ketoacidosis ICD Codes: E87.2 - Acidosis Status: Acute Plan: Improving at this time Patient continues to stay hydrated Continue to monitor her labs Most likely due to starvation (4) UTI (urinary tract infection) ICD Codes: N39.0 - Urinary tract infection, site not specified Status: Acute Plan: Continue to treat patient. Symptoms have resolved Urine culture: Contaminants -Stop Rocephin today (5) FEN Plan: Fluids: -Maintenance fluids 120 mL/h Electrolytes: -Monitor and replete as needed Nutrition: -Reg diet See the residents documentation for details. I saw and evaluated the patient regarding the hdz portions of this evaluation and agree with the residents findings and plans as written. Parts of this note were created using [employer] voice recognition software program. While efforts were made to correct any mistakes made by this software, some mistakes, errors, and omissions may remain in the final note that were not caught when the note was originally created. (Gabino Brennan MD) Problem Qualifiers (1) UTI (urinary tract infection): Qualified Codes: N39.0 - Urinary tract infection, site not specified Alfredo Boswell MD R1 Oct 30, 2017 11:30 Gabino Brennan MD Oct 30, 2017 15:01
[2017-10-30] MEDS: LORazepam 2 MG TAB PO PRN ×3 (11:32→21:24)
[2017-10-30] MEDS ORDERED: PROPOFOL 200 MG/20 ML AMP IV ONE (12:00)
[2017-10-30] MEDS ORDERED: LIDOCAINE HCL 1% PF 5 ML SYRINGE OTHER ONE (12:00)
[2017-10-30] MEDS ORDERED: SUCCINYLCHOLINE CHLORIDE 100 MG/5 ML SYRINGE IV PUSH ONE (12:00)
[2017-10-30] MEDS ORDERED: SODIUM CHLORIDE 0.9% 20 ML VIAL IV ONE (12:00)
[2017-10-30] MEDS ORDERED: PHENYLEPH/NS 1000 MCG/10 ML SYR IV ONE (12:00)
[2017-10-30] MEDS ORDERED: VECURONIUM BROMIDE 20 MG VIAL IV ONE (12:00)
[2017-10-30] MEDS ORDERED: STERILE WATER FOR INJECTION 20 ML VIAL IV ONE (12:00)
[2017-10-30] MEDS ORDERED: ceFAZolin INJ 1,000 MG VIAL IV ONE (12:00)
[2017-10-30] MEDS ORDERED: POTASSIUM CHLORIDE 20 MEQ CONTROLLED RELEASE TAB PO ONE (12:00)
[2017-10-30] MEDS ORDERED: ROCURONIUM INJ 50 MG/5 ML SYRINGE IV PUSH ONE (12:00)
[2017-10-30] MEDS ORDERED: ePHEDrine/NS 25 MG/5 ML SYRINGE IV ONE (12:00)
--- NOTE | 2017-10-30 12:02 | HHI.FPPN ---
Objective Vitals Vital Signs Date Time Temp Pulse Resp B/P (MAP) Pulse Ox O2 Delivery O2 Flow Rate FiO2 10/30/17 11:05 97.2 87 16 158/77 (104) 97 10/30/17 08:00 82 10/30/17 08:00 95.8 82 16 122/58 (79) 92 10/30/17 04:21 78 10/30/17 04:00 98.4 95 18 125/70 (88) 96 10/30/17 00:07 82 10/30/17 00:00 98.1 91 18 137/80 (99) 92 10/29/17 20:01 79 10/29/17 20:00 98.5 84 20 161/88 (112) 97 10/29/17 16:00 98.7 84 18 144/82 (102) 96 10/29/17 12:00 97.9 83 17 132/76 (94) 97 I/O 10/29/17 10/29/17 10/29/17 10/30/17 10/30/17 10/30/17 07:00 15:00 23:00 07:00 15:00 23:00 Intake Total 1380 ml 202.5 ml 1700 ml 1479 ml Output Total 800 ml Balance 1380 ml 202.5 ml 900 ml 1479 ml Intake Oral 380 ml 700 ml 720 ml IV Total 1000 ml 202.5 ml 1000 ml 759 ml Output Urine Total 800 ml # Voids 5 4 # Bowel Movements 3 5 0 Result Diagram: 10/30/17 0632 10/30/17 0632 Objective Remarks GENERAL: NAD, lying in bed SKIN: Warm and dry. CARDIOVASCULAR: Regular rate and rhythm. RESPIRATORY: No accessory muscle use. Clear to auscultation. Breath sounds equal bilaterally. GASTROINTESTINAL: Abdomen soft, non-tender, nondistended. MUSCULOSKELETAL: Extremities without clubbing, cyanosis, or edema. No obvious deformities. NEUROLOGICAL: Awake and alert. No obvious cranial nerve deficits. Improved [id number]-[id number] testing today. Normal speech. PSYCHIATRIC: Appropriate mood and affect; insight and judgment normal. A/P Assessment and Plan 62-year-old female who presented with nausea and vomiting. Increased confusion over the past 4 months, parkinsonian-like features. Metabolic derangements on admission. Anion gap 28. UA positive for UTI. Discharge Planning Pending neurology and GI workup Problem List: (1) Memory changes ICD Codes: R41.3 - Other amnesia Status: Acute Plan: MRI: small area of demyelination. mild atrophy Carotid US: negative CXR: linear atelectasis EEG normal Neurology consulted-appreciate recs -B12 normal -B6, thiamine pending -Folate >20 Psychiatry consulted-appreciate recs Placed on home multivitamins, folate recently prescribed Placed on CIWA Neuro checks On admission: Reports 4 months of worsening forgetfulness, flat affect, decreased interest and others, shuffling gait. Increasingly decreased appetite, anorexic for the past 5 days. Reports new onset tremors today. Possibly dementia (Lewy body versus vascular). Past history of alcoholism, ethyl alcohol less than 3 today. (2) GI bleed ICD Codes: K92.2 - Gastrointestinal hemorrhage, unspecified Plan: Developed diarrhea and melena reported on admission Hemoccult positive GI consulted-appreciate recs -EGD/colonoscopy 10/30/17 -PPI -Stool studies negative -Stool ova/parasites pending Monitor Hgb-stable -Tranfuse PRN (3) Ketoacidosis ICD Codes: E87.2 - Acidosis Status: Acute Plan: Improving at this time Patient continues to stay hydrated Continue to monitor her labs Most likely due to starvation (4) UTI (urinary tract infection) ICD Codes: N39.0 - Urinary tract infection, site not specified Status: Acute Plan: Continue to treat patient. Symptoms have resolved Urine culture: Contaminants -Stop Rocephin today (5) FEN Plan: Fluids: -Maintenance fluids 120 mL/h Electrolytes: -Monitor and replete as needed Nutrition: -Reg diet Parts of this note were created using [employer] voice recognition software program. While efforts were made to correct any mistakes made by this software, some mistakes, errors, and omissions may remain in the final note that were not caught when the note was originally created. Plan of care was discussed and agreed upon with the patient as specifically documented in the above note. An opportunity to ask questions with explanation was provided. Patient voiced understanding on all information reviewed and discussed. Problem Qualifiers (1) UTI (urinary tract infection): Qualified Codes: N39.0 - Urinary tract infection, site not specified Alfredo Boswell MD R1 Oct 30, 2017 12:02
--- NOTE | 2017-10-30 12:38 | HHI.PYPN ---
Subjective Remarks Patient seen today for psychiatric reevaluation. Chart review. Case discussed with nurse in charge. On psychiatric evaluation patient reports that she feels much better today after having a good sleep last night with the trazodone. Patient continues to be tearful, objectively depressed, but she reports that she is motivated to get better, to continue medical treatment, to focus in her job and improving interpersonal relationships. She denies suicidal and homicidal ideation, she denies visual and auditory hallucinations. She is fully oriented 3, no confusion, no fluctuation of consciousness present. Review of Systems Psychiatric: COMPLAINS OF: Mood changes, Depression Except as stated in HPI: all other systems reviewed are Neg Mental Status Examination Appearance: Appropriate Consciousness: Alert Orientation: x4 Motor Activity: Normal gait Speech: Unremarkable Language: Adequate Fund of Knowledge: Adequate Attention and Concentration: Adequate Memory: Unremarkable Mood: Sad Affect: Sad Thought Process & Associations: Intact Thought Content: Appropriate Hallucination Type: None Delusion Type: None Suicidal Ideation: No Suicidal Plan: No Suicidal Intention: No Homicidal Ideation: No Homicidal Plan: No Homicidal Intention: No Insight: Adequate Judgment: Adequate Results Labs Test 10/30/17 06:32 10/30/17 09:51 White Blood Count 3.7 TH/MM3 Red Blood Count 3.52 MIL/MM3 Hemoglobin 11.8 GM/DL Hematocrit 34.4 % Mean Corpuscular Volume 97.7 FL Mean Corpuscular Hemoglobin 33.5 PG Mean Corpuscular Hemoglobin Concent 34.3 % Red Cell Distribution Width 15.8 % Platelet Count 75 TH/MM3 Mean Platelet Volume 7.3 FL Blood Urea Nitrogen 7 MG/DL Creatinine 0.52 MG/DL Random Glucose 82 MG/DL Calcium Level 7.9 MG/DL Sodium Level 141 MEQ/L Potassium Level 3.3 MEQ/L Chloride Level 105 MEQ/L Carbon Dioxide Level 25.4 MEQ/L Anion Gap 11 MEQ/L Estimat Glomerular Filtration Rate 119 ML/MIN Blood Smear Pathologist Review Date/Time Source Procedure Growth Status 10/28/17 16:30 Stool Stool Cryptosporidium Exam Pending Received 10/28/17 16:30 Stool Stool Giardia Antigen (BEN) Pending Received 10/27/17 16:50 Urine Catheterized Urine Urine Culture - Final 50-100,000 CFU/ML MIXED JARVIS... Complete Vitals/IOs Vital Signs Date Time Temp Pulse Resp B/P (MAP) Pulse Ox O2 Delivery O2 Flow Rate FiO2 10/30/17 12:00 97.1 77 19 140/90 (107) 96 10/27/17 19:00 Room Air Intake and Output 10/30/17 10/30/17 10/31/17 08:00 16:00 00:00 Intake Total 1479 ml Balance 1479 ml Assessment & Plan Problem List: (1) Adjustment disorder with depressed mood ICD Codes: F43.21 - Adjustment disorder with depressed mood Assessment & Plan: Continue Trachsel 100 mg at bedtime for insomnia and depression. Brief supportive psychotherapy provided. Assessment & Plan Estimated LOS: days Justification for Cont. Inpt. Patient does not meet criteria for involuntary psychiatric admission at this moment. Yony Pham MD Oct 30, 2017 12:38
[2017-10-30 15:25] LABS: AUTOMATED NEUTROPHIL # 2.8 TH/MM3 (1.8-7.7); BASOPHIL % 0.6 % (0.0-2.0); EOSINOPHIL # 0.1 TH/MM3 (0-0.4); EOSINOPHIL % 2.8 % (0.0-4.0); HEMATOCRIT 35.8 % (35.0-46.0); HEMOGLOBIN 12.1 GM/DL (11.6-15.3); LYMPHOCYTE # 0.8 TH/MM3 (1.0-4.8); MEAN CELL VOLUME 98.2 FL (80.0-100.0); MEAN CORPUSCULAR HEMOGLOBIN 33.2 PG (27.0-34.0); MEAN CORPUSCULAR HGB CONC 33.8 % (32.0-36.0); MEAN PLATELET VOLUME 7.9 FL (7.0-11.0); MONO % 8.8 % (0.0-8.0); MONOCYTE # 0.4 TH/MM3 (0-0.9); NEUT % 67.8 % (16.0-70.0); PLATELET COUNT 81 TH/MM3 (150-450); RED BLOOD COUNT 3.64 MIL/MM3 (4.00-5.30); RED CELL DISTRIBUTION WIDTH 15.8 % (11.6-17.2); WHITE BLOOD COUNT 4.1 TH/MM3 (4.0-11.0)
--- NOTE | 2017-10-30 16:53 | EKG ---
Date Performed: 10/29/2017 Time Performed: 14:13:26 PTAGE: 62 years EKG: Sinus rhythm LOW QRS VOLTAGE IN PRECORDIAL LEADS BORDERLINE ECG NO PREVIOUS TRACING DOCTOR: Lore Segal Interpretating Date/Time 10/30/2017 16:52:05
[2017-10-30] MEDS ORDERED: NITROFURANTOIN MONOHYD MACROCR 100 MG CAP PO SCH (18:00)
[2017-10-30] MEDS: traZODone HCL 100 MG TAB PO SCH (21:27)
[2017-10-31] VITALS: BP 144/76; PULSE 85; PULSE 88; RESP 20; TEMP 97; O2SAT 95
[2017-10-31 00:24] VITALS: PULSE 97
[2017-10-31 04:00] VITALS: BP 135/68; PULSE 93; RESP 20; TEMP 97.7; O2SAT 94
[2017-10-31 07:36] LABS: BICARBONATE 25.8 MEQ/L (21.0-32.0); CALCIUM 8.2 MG/DL (8.5-10.1); CREATININE 0.43 MG/DL (0.50-1.00)
[2017-10-31 08:00] VITALS: BP 133/86; PULSE 90; RESP 17; TEMP 96.7; O2SAT 96
[2017-10-31] MEDS: FOLIC ACID 1 MG TAB PO SCH (08:41)
[2017-10-31] MEDS: THIAMINE INJ 250 MG in SODIUM CHLORIDE 0.9% INJ 100 ML IV SCH (08:41)
[2017-10-31] MEDS: LORazepam 1 MG TAB PO PRN (08:41)
[2017-10-31] MEDS: PANTOPRAZOLE SOD 40 MG DELAYED RELEASE TAB PO SCH (08:41)
[2017-10-31] MEDS: MULTIVITAMIN TAB PO SCH (08:41)
[2017-10-31] MEDS: SODIUM CHLORIDE 0.9% FLUSH 10 ML FLUSH IV FLUSH SCH (08:42)
[2017-10-31] MEDS: DOCUSATE SODIUM 50 MG/SENNA 8.6 MG TAB PO SCH (08:45)
[2017-10-31] MEDS ORDERED: TRAZ50TA12 PO (10:00)
[2017-10-31] MEDS ORDERED: LOPE2CAP2 PO (10:00)
[2017-10-31] MEDS ORDERED: ZOFR4TAB PO (10:00)
[2017-10-31] MEDS ORDERED: FOLI1TAB6 PO (10:00)
[2017-10-31] MEDS ORDERED: PANT40TA3 PO (10:00)
[2017-10-31] MEDS ORDERED: THERTAB15 PO (10:00)
--- NOTE | 2017-10-31 10:01 | HHI.FPPN ---
Subjective Remarks Patient seen and examined this morning. No acute events overnight. Pt reports her mentation has improved. Still has some weakness getting around, but improved. Still having green stools, but improved diarrhea. No fever/chills, chest pain, SOB, nausea/vomiting, abdominal pain, leg pain. Is wanting to go home. (Juan Daniel Saeed MD, R2) Objective Vitals Vital Signs Date Time Temp Pulse Resp B/P (MAP) Pulse Ox O2 Delivery O2 Flow Rate FiO2 10/31/17 08:00 96.7 90 17 133/86 (102) 96 10/31/17 04:00 97.7 93 20 135/68 (90) 94 10/31/17 00:24 97 10/31/17 00:00 97.0 85 20 144/76 (98) 95 10/31/17 00:00 88 10/30/17 20:00 98.9 92 22 133/81 (98) 95 10/30/17 16:00 98.8 84 18 135/86 (102) 95 10/30/17 12:00 97.1 77 19 140/90 (107) 96 10/30/17 11:05 97.2 87 16 158/77 (104) 97 I/O 10/30/17 10/30/17 10/30/17 10/31/17 10/31/17 10/31/17 07:00 15:00 23:00 07:00 15:00 23:00 Intake Total 1479 ml 600 ml 1402.5 ml 360 ml Output Total 6 ml 600 ml Balance 1479 ml 600 ml 1396.5 ml -240 ml Intake Oral 720 ml 300 ml 360 ml IV Total 759 ml 100 ml 1102.5 ml Other 500 ml Output Urine Total 6 ml 600 ml # Voids 4 # Bowel Movements 0 4 0 (Juan Daniel Saeed MD, R2) Result Diagram: 10/30/17 1357 10/31/17 0639 Imaging Last Impressions Chest X-Ray 10/28/17 0000 Signed Impressions: Service Date/Time: Saturday, October 28, 2017 11:41 - CONCLUSION: Suspected linear atelectasis at the right base. Jese Alvarez MD Carotid Artery Ultrasound 10/28/17 0000 Signed Impressions: Service Date/Time: Saturday, October 28, 2017 17:02 - CONCLUSION: No evidence for hemodynamically significant stenosis. Nicole Kinney MD Brain MRI 10/28/17 0000 Signed Impressions: Service Date/Time: Saturday, October 28, 2017 09:52 - CONCLUSION: 1. Mild focal increased signal within the pontine white matter on the flair images. This could be a small area of demyelination. Osmotic demyelination syndrome causes signal abnormality in this region but typically is much more diffuse. 2. Mild atrophy with widening of the cortical sulci. Jese Alvarez MD Head CT 10/27/17 1604 Signed Impressions: Service Date/Time: Friday, October 27, 2017 16:13 - CONCLUSION: Slight atrophic and small vessel ischemic changes without any evidence for acute hemorrhage or mass effect. Nicole Kinney MD Objective Remarks GENERAL: NAD, lying in bed SKIN: Warm and dry. CARDIOVASCULAR: Regular rate and rhythm. RESPIRATORY: No accessory muscle use. Clear to auscultation. Breath sounds equal bilaterally. GASTROINTESTINAL: Abdomen soft, non-tender, nondistended. MUSCULOSKELETAL: Extremities without clubbing, cyanosis, or edema. NEUROLOGICAL: Awake and alert. No obvious cranial nerve deficits. Continued improved [id number] testing today, No intention tremor, no dysmetria. Normal speech. PSYCHIATRIC: Appropriate mood and affect; insight and judgment normal. (Juan Daniel Saeed MD, R2) A/P Assessment and Plan 62-year-old female who presented with nausea and vomiting. Increased confusion over the past 4 months, parkinsonian-like features. Metabolic derangements on admission. Anion gap 28. UA positive for UTI. Discharge Planning Discharge today (Juan Daniel Saeed MD, R2) Problem List: (1) Memory changes ICD Codes: R41.3 - Other amnesia Status: Acute Plan: MRI: small area of demyelination. mild atrophy Carotid US: negative CXR: linear atelectasis EEG normal HIV negative RPR negative Blood smear wnl Neurology consulted-appreciate recs -B12 normal -B6, thiamine pending -Folate >20 Psychiatry consulted-appreciate recs * Does not meet criteria for involuntary psychiatric admission * Notes mild depression, on trazodone 100 mg at bedtime Placed on home multivitamins, folate recently prescribed Placed on CIWA Neuro checks On admission: Reports 4 months of worsening forgetfulness, flat affect, decreased interest and others, shuffling gait. Increasingly decreased appetite, anorexic for the past 5 days. Reports new onset tremors today. Possibly dementia (Lewy body versus vascular). Past history of alcoholism, ethyl alcohol less than 3 today. (2) GI bleed ICD Codes: K92.2 - Gastrointestinal hemorrhage, unspecified Plan: Developed diarrhea and melena reported on admission Hemoccult positive GI consulted-appreciate recs -EGD/colonoscopy 10/30/17: gastritis and diverticulosis. -PPI -Stool studies negative -Stool ova/parasites negative -F/u GI outpatient for possible capsule endoscopy Monitor Hgb-stable -Tranfuse PRN (3) Ketoacidosis ICD Codes: E87.2 - Acidosis Status: Acute Plan: Improving at this time Patient continues to stay hydrated Continue to monitor her labs Most likely due to starvation (4) FEN Plan: Fluids: -Maintenance fluids 120 mL/h Electrolytes: -Monitor and replete as needed Nutrition: -Reg diet (Juan Daniel Saeed MD, R2) Problem List: (1) Memory changes ICD Codes: R41.3 - Other amnesia Status: Acute Plan: MRI: small area of demyelination. mild atrophy Carotid US: negative CXR: linear atelectasis EEG normal HIV negative RPR negative Blood smear wnl Neurology consulted-appreciate recs -B12 normal -B6, thiamine pending -Folate >20 Psychiatry consulted-appreciate recs * Does not meet criteria for involuntary psychiatric admission * Notes mild depression, on trazodone 100 mg at bedtime Placed on home multivitamins, folate recently prescribed Placed on CIWA Neuro checks On admission: Reports 4 months of worsening forgetfulness, flat affect, decreased interest and others, shuffling gait. Increasingly decreased appetite, anorexic for the past 5 days. Reports new onset tremors today. Possibly dementia (Lewy body versus vascular). Past history of alcoholism, ethyl alcohol less than 3 today. (2) GI bleed ICD Codes: K92.2 - Gastrointestinal hemorrhage, unspecified Plan: Developed diarrhea and melena reported on admission Hemoccult positive GI consulted-appreciate recs -EGD/colonoscopy 10/30/17: gastritis and diverticulosis. 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 Discussed at length about cessation of alcohol use Follow-up with neurology. (3) Ketoacidosis ICD Codes: E87.2 - Acidosis Status: Acute Plan: Improving at this time Patient continues to stay hydrated Continue to monitor her labs Most likely due to starvation (4) FEN Plan: Fluids: -Maintenance fluids 120 mL/h Electrolytes: -Monitor and replete as needed Nutrition: -Reg diet (Gabino Brennan MD) Juan Daniel Saeed MD, R2 Oct 31, 2017 10:01 Gabino Brennan MD Oct 31, 2017 11:48
--- NOTE | 2017-10-31 10:02 | HHI.DCPOC ---
Discharge Care Plan Diagnosis: (1) Ketoacidosis (2) Nausea and vomiting (3) Chronic diarrhea (4) GI bleed (5) Memory changes (6) Adjustment disorder with depressed mood Goals to Promote Your Health * To prevent worsening of your condition and complications * To maintain your health at the optimal level Directions to Meet Your Goals Take your medications as prescribed Follow your dietary instruction Follow activity as directed Keep your appointments as scheduled Take your immunizations and boosters as scheduled If your symptoms worsen call your PCP, if no PCP go to Urgent Care Center or Emergency Room Smoking is Dangerous to Your Health. Avoid second hand smoke Call the 24-hour hour crisis hotline for domestic abuse at Juan Daniel Saeed MD, R2 Oct 31, 2017 10:02
--- NOTE | 2017-10-31 10:33 | HHI.FF ---
Face to Face Verification Diagnosis: (1) Weakness (2) Memory changes Physical Therapy Order: Evaluate and Treat, Improve ambulation, Strength and gait training Occupational Therapy Order: Evaluate and Treat, Gross motor coordination, Fine motor coordination I have seen patient Kaur Roth on 10/31/17. My clinical findings support the need for the requested home health care services because: Ltd mobility - disease progression Deconditioned w/ increased weakness High risk of falls I certify that my clinical findings support that this patient is homebound because: Unsteady gait/balance Juan Daniel Saeed MD, R2 Oct 31, 2017 10:33
[2017-10-31] MEDS ORDERED: WALKER WHEELS/F1 MIS (10:34)
--- NOTE | 2017-10-31 10:35 | HHI.DS ---
Discharge Summary Admission Date Oct 27, 2017 at 18:38 Discharge Date: Oct 31, 2017 Admitting Diagnosis KETOACIDOSIS (1) Memory changes Diagnosis: Principal Plan: MRI: small area of demyelination. mild atrophy Carotid US: negative CXR: linear atelectasis EEG normal -Follow up HIV -RPR negative -Follow up blood smear Neurology consulted-appreciate recs -B12 normal -B6, thiamine pending -Folate >20 Psychiatry consulted-appreciate recs * Does not meet criteria for involuntary psychiatric admission * Notes mild depression, on trazodone 100 mg at bedtime Placed on home multivitamins, folate recently prescribed Placed on CIWA Neuro checks On admission: Reports 4 months of worsening forgetfulness, flat affect, decreased interest and others, shuffling gait. Increasingly decreased appetite, anorexic for the past 5 days. Reports new onset tremors today. Possibly dementia (Lewy body versus vascular). Past history of alcoholism, ethyl alcohol less than 3 today. ICD Codes: R41.3 - Other amnesia Status: Acute (2) GI bleed Diagnosis: Principal Plan: Developed diarrhea and melena reported on admission Hemoccult positive GI consulted-appreciate recs -EGD/colonoscopy 10/30/17, follow-up results -PPI -Stool studies negative -Stool ova/parasites pending Monitor Hgb-stable -Tranfuse PRN ICD Codes: K92.2 - Gastrointestinal hemorrhage, unspecified (3) Ketoacidosis Diagnosis: Secondary Plan: Improving at this time Patient continues to stay hydrated Continue to monitor her labs Most likely due to starvation ICD Codes: E87.2 - Acidosis Status: Acute (4) UTI (urinary tract infection) Diagnosis: Secondary Plan: Continue to treat patient. Symptoms have resolved Urine culture: Contaminants -Stop Rocephin today ICD Codes: N39.0 - Urinary tract infection, site not specified Status: Acute (5) FEN Diagnosis: Secondary Plan: Fluids: -Maintenance fluids 120 mL/h Electrolytes: -Monitor and replete as needed Nutrition: -Reg diet See the residents documentation for details. I saw and evaluated the patient regarding the hdz portions of this evaluation and agree with the residents findings and plans as written. Parts of this note were created using [employer] voice recognition software program. While efforts were made to correct any mistakes made by this software, some mistakes, errors, and omissions may remain in the final note that were not caught when the note was originally created. Consultants Neurology, GI, Psychiatry Procedures EGD, Colonoscopy Brief History Patient was seen and examined at bedside. She is feeling significantly better today. She continues to have some symptoms of nausea, vomiting and diarrhea. She described having some black color diarrhea. Overall she believes symptoms are improving. Still has not had a very good appetite. Overall feeling much better. Doing well on the CIWA protocol. Denies any symptoms of chest pain, shortness of breath, or lightheadedness. We'll attempt to eat next meal. CBC/BMP: 10/30/17 1357 10/31/17 0639 Significant Findings Laboratory Tests Test 10/28/17 13:27 10/28/17 15:40 10/29/17 09:37 10/30/17 06:32 Folate GREATER THAN 20.0 NG/ML White Blood Count 3.5 TH/MM3 (4.0-11.0) 3.7 TH/MM3 (4.0-11.0) Red Blood Count 3.80 MIL/MM3 (4.00-5.30) 3.52 MIL/MM3 (4.00-5.30) Platelet Count 79 TH/MM3 (150-450) 75 TH/MM3 (150-450) Platelet Estimate LOW (NORMAL) Albumin 3.3 GM/DL (3.4-5.0) Calcium Level 8.0 MG/DL (8.5-10.1) 7.9 MG/DL (8.5-10.1) Aspartate Amino Transf (AST/SGOT) 66 U/L (15-37) Potassium Level 3.2 MEQ/L (3.5-5.1) 3.3 MEQ/L (3.5-5.1) Hematocrit 34.4 % (35.0-46.0) Test 10/30/17 09:51 10/30/17 13:57 10/31/17 06:39 Red Blood Count 3.64 MIL/MM3 (4.00-5.30) Platelet Count 81 TH/MM3 (150-450) Monocytes (%) (Auto) 8.8 % (0.0-8.0) Lymphocytes # (Auto) 0.8 TH/MM3 (1.0-4.8) Platelet Estimate LOW (NORMAL) Blood Urea Nitrogen 5 MG/DL (7-18) Creatinine 0.43 MG/DL (0.50-1.00) Calcium Level 8.2 MG/DL (8.5-10.1) Potassium Level 3.2 MEQ/L (3.5-5.1) Imaging Last Impressions Chest X-Ray 10/28/17 0000 Signed Impressions: Service Date/Time: Saturday, October 28, 2017 11:41 - CONCLUSION: Suspected linear atelectasis at the right base. Jese Alvarez MD Carotid Artery Ultrasound 10/28/17 0000 Signed Impressions: Service Date/Time: Saturday, October 28, 2017 17:02 - CONCLUSION: No evidence for hemodynamically significant stenosis. Nicole Kinney MD Brain MRI 10/28/17 0000 Signed Impressions: Service Date/Time: Saturday, October 28, 2017 09:52 - CONCLUSION: 1. Mild focal increased signal within the pontine white matter on the flair images. This could be a small area of demyelination. Osmotic demyelination syndrome causes signal abnormality in this region but typically is much more diffuse. 2. Mild atrophy with widening of the cortical sulci. Jese Alvarez MD Head CT 10/27/17 1604 Signed Impressions: Service Date/Time: Friday, October 27, 2017 16:13 - CONCLUSION: Slight atrophic and small vessel ischemic changes without any evidence for acute hemorrhage or mass effect. Nicole Kinney MD PE at Discharge GENERAL: NAD, lying in bed SKIN: Warm and dry. CARDIOVASCULAR: Regular rate and rhythm. RESPIRATORY: No accessory muscle use. Clear to auscultation. Breath sounds equal bilaterally. GASTROINTESTINAL: Abdomen soft, non-tender, nondistended. MUSCULOSKELETAL: Extremities without clubbing, cyanosis, or edema. No obvious deformities. NEUROLOGICAL: Awake and alert. No obvious cranial nerve deficits. Improved [id number] testing today, minimal intention tremor, no dysmetria. Normal speech. PSYCHIATRIC: Appropriate mood and affect; insight and judgment normal. Hospital Course 62-year-old female with past medical history of alcoholism presented to the ER with nausea, vomiting and memory changes. Patient was found to have ketoacidosis, likely due to fasting. She was started on maintenance fluids and medications to control her symptoms. Neurology was consulted for her memory changes. CT head was negative, MRI showed some areas of demyelination, otherwise within normal limits. No focal neuro deficit. Neurology recommended continuing vitamin supplementation and testing for certain vitamins. She remained stable and improved mentally. Patient was started on several vitamins. Patient was also found to have positive Hemoccult and melena. GI was consulted who did EGD and colonoscopy. Hemoglobin remained stable. Signs of gastritis and diverticulosis were present. Patient was discharged in stable condition to follow-up with GI and neurology. Pt Condition on Discharge: Stable Discharge Disposition: Disch w/ Home Health Serv Discharge Instructions DIET: Follow Instructions for: As Tolerated, No Restrictions Activities you can perform: Regular-No Restrictions Follow up Referrals: GI/CRS Colonoscopy - 1 Week with Cole Pederson MD Neurology - 1 Week with Danisha Angel MD PCP Follow-up - 1 Week New Medications: Ondansetron (Zofran) 4 Mg Tab 4 MG PO Q8HR PRN for NAUSEA OR VOMITING, #30 TAB 0 Refills Walker with Front Wheels (Walker with Front Wheels) 1 Mis Mis EA .ROUTE DIRECTED, #1 Folic Acid (Folic Acid) 1 Mg Tablet 1 MG PO DAILY, #30 TAB Loperamide HCl (Hm Loperamide HCl) 2 Mg Cap 2 MG PO Q6H PRN for diarrhea, #20 CAP Multivitamin with Folic Acid (Thera Tablet) 400 Mcg Tablet 1 TAB PO DAILY, #30 TAB Pantoprazole (Pantoprazole) 40 Mg Tab 40 MG PO Q12HR, #30 TAB Trazodone (Trazodone) 50 Mg Tab 100 MG PO HS, #30 TAB Juan Daniel Saeed MD, R2 Oct 31, 2017 10:35
--- NOTE | 2017-10-31 10:41 | HHI.GIFU ---
Subjective Remarks Pt resting in bed, eating thai muffin and peanut butter. Her chronic diarrhea has returned, and she has had some episodes incontinence. Requesting immodium before she leaves. Objective Vitals I&O Vital Signs Date Time Temp Pulse Resp B/P (MAP) Pulse Ox O2 Delivery O2 Flow Rate FiO2 10/31/17 08:00 96.7 90 17 133/86 (102) 96 10/31/17 04:00 97.7 93 20 135/68 (90) 94 10/31/17 00:24 97 10/31/17 00:00 97.0 85 20 144/76 (98) 95 10/31/17 00:00 88 10/30/17 20:00 98.9 92 22 133/81 (98) 95 10/30/17 16:00 98.8 84 18 135/86 (102) 95 10/30/17 12:00 97.1 77 19 140/90 (107) 96 10/30/17 11:05 97.2 87 16 158/77 (104) 97 I/O 10/30/17 10/30/17 10/30/17 10/31/17 10/31/17 10/31/17 07:00 15:00 23:00 07:00 15:00 23:00 Intake Total 1479 ml 600 ml 1402.5 ml 360 ml Output Total 6 ml 600 ml Balance 1479 ml 600 ml 1396.5 ml -240 ml Intake Oral 720 ml 300 ml 360 ml IV Total 759 ml 100 ml 1102.5 ml Other 500 ml Output Urine Total 6 ml 600 ml # Voids 4 # Bowel Movements 0 4 0 Laboratory Laboratory Tests Test 10/30/17 13:57 10/31/17 06:39 White Blood Count 4.1 Red Blood Count 3.64 Hemoglobin 12.1 Hematocrit 35.8 Mean Corpuscular Volume 98.2 Mean Corpuscular Hemoglobin 33.2 Mean Corpuscular Hemoglobin Concent 33.8 Red Cell Distribution Width 15.8 Platelet Count 81 Mean Platelet Volume 7.9 Neutrophils (%) (Auto) 67.8 Lymphocytes (%) (Auto) 20.0 Monocytes (%) (Auto) 8.8 Eosinophils (%) (Auto) 2.8 Basophils (%) (Auto) 0.6 Neutrophils # (Auto) 2.8 Lymphocytes # (Auto) 0.8 Monocytes # (Auto) 0.4 Eosinophils # (Auto) 0.1 Basophils # (Auto) 0.0 CBC Comment AUTO DIFF Differential Comment AUTO DIFF CONFIRMED Platelet Estimate LOW Platelet Morphology Comment NORMAL Blood Urea Nitrogen 5 Creatinine 0.43 Random Glucose 90 Calcium Level 8.2 Sodium Level 140 Potassium Level 3.2 Chloride Level 105 Carbon Dioxide Level 25.8 Anion Gap 9 Estimat Glomerular Filtration Rate 149 Date/Time Source Procedure Growth Status 10/28/17 16:30 Stool Stool Cryptosporidium Exam - Final NEGATIVE - NO CRYPTOSPORIDIUM ANTIGEN... Complete 10/28/17 16:30 Stool Stool Giardia Antigen (BEN) - Final NEGATIVE - NO GIARDIA ANTIGEN DETECTE... Complete 10/27/17 16:50 Urine Catheterized Urine Urine Culture - Final 50-100,000 CFU/ML MIXED JARVIS... Complete Imaging Last Impressions Chest X-Ray 10/28/17 0000 Signed Impressions: Service Date/Time: Saturday, October 28, 2017 11:41 - CONCLUSION: Suspected linear atelectasis at the right base. Jese Alvarez MD Carotid Artery Ultrasound 10/28/17 0000 Signed Impressions: Service Date/Time: Saturday, October 28, 2017 17:02 - CONCLUSION: No evidence for hemodynamically significant stenosis. Nicole Kinney MD Brain MRI 10/28/17 0000 Signed Impressions: Service Date/Time: Saturday, October 28, 2017 09:52 - CONCLUSION: 1. Mild focal increased signal within the pontine white matter on the flair images. This could be a small area of demyelination. Osmotic demyelination syndrome causes signal abnormality in this region but typically is much more diffuse. 2. Mild atrophy with widening of the cortical sulci. Jese Alvarez MD Head CT 10/27/17 1604 Signed Impressions: Service Date/Time: Friday, October 27, 2017 16:13 - CONCLUSION: Slight atrophic and small vessel ischemic changes without any evidence for acute hemorrhage or mass effect. Nicole Kinney MD Physical Exam HEENT: PERRL; normocephalic; atraumatic; no jaundice. CHEST: CTA CARDIAC: RRR ABDOMEN: Soft, nondistended, nontender; no hepatosplenomegaly; bowel sounds are present in all four quadrants. EXTREMITIES: No clubbing, cyanosis, or edema. SKIN: Normal; no rash; no jaundice. 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 Assessment and Plan Assessment: (1) Chronic diarrhea ICD Codes: K52.9 - Noninfective gastroenteritis and colitis, unspecified (2) Intermittent left upper quadrant abdominal pain ICD Codes: R10.12 - Left upper quadrant pain (3) Nausea and vomiting ICD Codes: R11.2 - Nausea with vomiting, unspecified (4) Dysphagia ICD Codes: R13.10 - Dysphagia, unspecified Plan - n/v improved. tolerating diet. has diarrhea again with some incontinence. Diarrhea appears to be acute on chronic but states currently is going approximately 8 times a day. stool studies neg hemoccult pos. s/p EGD & colonoscopy 10-30-16 found gastritis, hemorrhoids diverticulosis, sessile polyp sigmoid removed. Colonic mucosa appeared normal throughout, bx taken. Plan - resume immodium PRN - MARE - f/u with GI as outpt in 1-2 weeks for bx results - outpt capsule endoscopy - continue BID protonix - ok to d/c from GI standpoint Brook Carlos Oct 31, 2017 10:41
[2017-10-31 12:15] LABS: HEPATITIS B CORE AB IGM NEGATIVE (NEGATIVE); HEPATITIS B SURFACE ANTIGEN NEGATIVE (NEGATIVE); HEPATITIS C AB IgG REACTIVE (NEGATIVE)
[2017-10-31 13:11] LABS: HEPATITIS A AB IGM NEGATIVE (NEGATIVE)
== END 2017-10-31 12:13 | disposition home health service (06) | DRG 640 ==
LOC: NEPC 15:42 → NEDA 18:38 → N07B 20:56
PROVIDERS: ADMIT Family Medicine; ATTEND Family Medicine
PROC: 0DB68ZX Excision of Stomach, Via Natural or Artificial Opening Endoscopic, Diagnostic (ICD-10-PCS; 2017-10-30)
PROC: 0DBE8ZX Excision of Large Intestine, Via Natural or Artificial Opening Endoscopic, Diagnostic (ICD-10-PCS; principal; 2017-10-30 10:32)
PROC: 0DBN8ZZ Excision of Sigmoid Colon, Via Natural or Artificial Opening Endoscopic (ICD-10-PCS; 2017-10-30 10:32)
DX: E87.2 Acidosis (principal); K29.71 Gastritis, unspecified, with bleeding; K57.31 Diverticulosis of large intestine without perforation or abscess with bleeding; G37.9 Demyelinating disease of central nervous system, unspecified; N39.0 Urinary tract infection, site not specified; J98.11 Atelectasis; F10.20 Alcohol dependence, uncomplicated; R13.10 Dysphagia, unspecified; R00.0 Tachycardia, unspecified; R25.1 Tremor, unspecified; R41.3 Other amnesia; R82.4 Acetonuria; F43.21 Adjustment disorder with depressed mood; T73.0XXA Starvation, initial encounter; K52.9 Noninfective gastroenteritis and colitis, unspecified; G47.00 Insomnia, unspecified; D12.5 Benign neoplasm of sigmoid colon; K64.8 Other hemorrhoids; F17.210 Nicotine dependence, cigarettes, uncomplicated; Y90.0 Blood alcohol level of less than 20 mg/100 ml; Z88.2 Allergy status to sulfonamides
CPT/HCPCS: 70450; 70551; 71010; 80048; 80053; 80074; 80307; 81001; 82010; 82140; 82272; 82550; 82607; 82746; 83605; 83735; 84100; 84207; 84425; 84443; 84484; 85025; 85027; 85060; 85610; 85730; 86592; 86703; 87086; 87328; 87329; 87506; 88305; 93005; 93880; 95819; 96374; 96375; 96376; J0330; J0690; J0696; J1644; J2060; J2370; J2405; J3411; J7030